=== PATIENT | female | born 1970 | race Caucasian/White ===

== ENCOUNTER 2016-07-13 18:48 | Emergency (ER) | payer OTHER ==
[~2016-07-13] VITALS: Ht 167.6 cm; Wt 108.4 kg
[2016-07-13] MEDS ORDERED: NAPROXEN 250 MG TAB PO ONE (21:45)
[2016-07-13] MEDS ORDERED: NAPR500T PO (22:04)
[2016-07-13 22:17] VITALS: BP 140/85
--- NOTE | 2016-07-14 09:07 | REP ---
RIGHT HUMERUS: 07/13/2016. Clinical history: Trauma. Findings: Two views show no evidence of fracture of the humerus. The AC and glenohumeral joints are intact. Visualized aspects of the elbow were also intact. Impression: 1. No fracture of the humerus. Signed by Raúl Hawkins MD 07/14/2016 02:59 P
== END 2016-07-13 22:21 | disposition home or self-care (01) ==
LOC: M ED 21:04
DX: S40.021A Contusion of right upper arm, initial encounter (principal); W01.10XA Fall on same level from slipping, tripping and stumbling with subsequent striking against unspecified object, initial encounter; Y92.410 Unspecified street and highway as the place of occurrence of the external cause; Y93.89 Activity, other specified; Y99.9 Unspecified external cause status

== ENCOUNTER → 2017-05-02 | Outpatient (CLI) | payer OTHER | LOC: M RAD 10:11 | DX: N91.0 Primary amenorrhea (principal); N88.8 Other specified noninflammatory disorders of cervix uteri; D25.9 Leiomyoma of uterus, unspecified | CPT/HCPCS: 76856 ==

== ENCOUNTER → 2017-09-10 | Outpatient (REF) ==
[2017-09-10 11:54] LABS: RUBELLA IgG QUALITATIVE IMMUNE (IMMUNE)
[2017-09-11 08:07] LABS: RUBEOLA IgG ANTIBODY <25.0 AU/mL (Immune >29.9)
== END ==
LOC: M LAB 10:40
DX: Z00.00 Encounter for general adult medical examination without abnormal findings (principal)

== ENCOUNTER → 2017-10-02 | Outpatient (CLI) | payer OTHER | LOC: M WHC 14:40 | DX: Z12.31 Encounter for screening mammogram for malignant neoplasm of breast (principal); Z85.3 Personal history of malignant neoplasm of breast | CPT/HCPCS: 77067 ==

== ENCOUNTER 2018-01-04 11:16 | Emergency (ER) | payer OTHER ==
[2018-01-04] MEDS: ACETAMINOPHEN 325 MG TAB PO (12:02)
[2018-01-04 12:15] LABS: BASO # 0.1 10^3/uL (0.0-0.2); BASO % 0.6 % (0.0-1.0); EOS # 0.3 10^3/uL (0.0-0.50); HEMATOCRIT 34.5 % (36.0-47.0); HEMOGLOBIN 11.3 g/dl (12.0-15.5); IMMATURE GRANULOCYTE % 0.3 % (0-3.0); LYMPH # 2.5 10^3/uL (1.5-4.5); LYMPH % 28.1 % (24.0-44.0); MEAN CORPUSCULAR HEMOGLOBIN 26.7 pg (27.0-33.0); MEAN CORPUSCULAR HGB CONC 32.8 g/dl (32.0-36.5); MEAN CORPUSCULAR VOLUME 81.4 fl (80.0-96.0); MONO # 0.5 10^3/uL (0.0-0.8); MONO % 5.3 % (0.0-5.0); NEUTROPHILS # 5.6 10^3/uL (1.8-7.7); NEUTROPHILS % 62.7 % (36.0-66.0); PLATELET COUNT, AUTOMATED 310 10^3/uL (150-450); RED BLOOD COUNT 4.24 10^6/uL (4.00-5.40); RED CELL DISTRIBUTION WIDTH 13.4 % (11.5-14.5)
[2018-01-04 12:28] LABS: INR 1.05; PARTIAL THROMBOPLASTIN TIME 25.5 SECONDS (25.4-37.6); PROTHROMBIN TIME 13.8 SECONDS (12.1-14.4)
[2018-01-04 12:38] LABS: ANION GAP 7 MEQ/L (8-16); BLOOD UREA NITROGEN 13 MG/DL (7-18); CALCIUM LEVEL 8.6 MG/DL (8.5-10.1); CARBON DIOXIDE LEVEL 28 MEQ/L (21-32); CHLORIDE LEVEL 106 MEQ/L (98-107); CREATININE FOR GFR 0.74 MG/DL (0.55-1.30); GLOMERULAR FILTRATION RATE > 60.0 (>58); GLUCOSE, FASTING 96 MG/DL (70-100); POTASSIUM SERUM 3.9 MEQ/L (3.5-5.1); SODIUM LEVEL 141 MEQ/L (136-145)
== END 2018-01-04 13:10 | disposition home or self-care (01) ==
LOC: M ED 11:16
DX: I83.812 Varicose veins of left lower extremity with pain (principal)
CPT/HCPCS: 93971

== ENCOUNTER → 2018-07-05 | Outpatient (REF) | payer OTHER ==
[~2018-07-05] MED LIST: NAPR-837 PO
[2018-07-05 13:38] LABS: BLOOD UREA NITROGEN 11 MG/DL (7-18); CALCIUM LEVEL 8.5 MG/DL (8.5-10.1); CARBON DIOXIDE LEVEL 28 MEQ/L (21-32); CHLORIDE LEVEL 104 MEQ/L (98-107); CREATININE FOR GFR 0.71 MG/DL (0.55-1.30); GLOMERULAR FILTRATION RATE > 60.0 (>58); GLUCOSE, FASTING 100 MG/DL (70-100); POTASSIUM SERUM 4.2 MEQ/L (3.5-5.1); SODIUM LEVEL 139 MEQ/L (136-145)
== END ==
LOC: M SFHCPLAZ 11:20
PROVIDERS: ATTEND Family Medicine
DX: G47.62 Sleep related leg cramps (principal)

== ENCOUNTER → 2018-07-16 | Outpatient (CLI) | payer OTHER ==
--- NOTE | 2018-07-16 14:08 | REP ---
Soft tissue ultrasound of the right upper arm. The for a palpable tender mass near the elbow: Ultrasonography of the upper arm above the elbow in the location of the palpable mass posteriorly identifies a solid mass measuring 2.4-0.9 x 0.7 cm. Impression: The palpable mass corresponds to a solid mass as described. I would recommend MRI follow-up for further evaluation. Electronically Signed by Gato Leon MD 07/16/2018 02:00 P
== END ==
LOC: M WHC 11:11
PROVIDERS: ATTEND Family Medicine
DX: R22.31 Localized swelling, mass and lump, right upper limb (principal)

== ENCOUNTER → 2018-07-16 | Outpatient (REF) | payer OTHER | LOC: M SFHCPLAZ 17:15 | PROVIDERS: ATTEND Nurse Practitioner Family | DX: J02.9 Acute pharyngitis, unspecified (principal) ==

== ENCOUNTER → 2018-07-31 | Outpatient (CLI) | payer OTHER ==
[~2018-07-31] MED LIST changes: +PROHANCE 279.3MG/ML 15ML VIAL (A9576) As Ordered ONE; +PROHANCE 279.3MG/ML 5ML VIAL (A9576) As Ordered ONE
--- NOTE | 2018-07-31 16:56 | REP ---
MRI RIGHT HUMERUS WITH AND WITHOUT CONTRAST: Correlation ultrasound 07/16/2018. Multiple sequences were obtained in the axial, coronal planes prior to and following the intravenous administration of 20 mL ProHance. Palpable mass is marked with skin markers and is located posterior and lateral to the distal end of the humerus. At that location there is an oval area of fat which appears to represent a lipoma. This appears to be poorly encapsulated. Approximate maximum length is about 2.8 cm with a width of about 1.3 cm. There is no suspicious enhancement. This follows fat signal on all sequences. I see no other evidence of a soft tissue mass. There is mild subchondral marrow edema in the lateral humeral epicondyle which is nonspecific and may be related to arthritic changes. There is a normal amount of joint fluid. Visualized tendons and ligaments of the elbow appear unremarkable. IMPRESSION: Palpable lump posterolateral to the distal end of the humerus appears to correspond to a poorly encapsulated benign lipoma. No other evidence of soft tissue mass. Electronically Signed by Gato Horne MD 08/02/2018 12:03 P
== END ==
LOC: M RAD 12:32
PROVIDERS: ATTEND Family Medicine
DX: R22.31 Localized swelling, mass and lump, right upper limb (principal)
CPT/HCPCS: 73220; A9576

== ENCOUNTER 2018-10-20 04:56 | Emergency (ER) | payer OTHER ==
[~2018-10-20] VITALS: Ht 167.6 cm; Wt 108.6 kg
[~2018-10-20 04:56] MED LIST changes: -PROHANCE 279.3MG/ML 15ML VIAL (A9576) As Ordered ONE; -PROHANCE 279.3MG/ML 5ML VIAL (A9576) As Ordered ONE
[2018-10-20 07:01] LABS: BASO % 0.3 % (0.0-1.0); EOS # 0.2 10^3/uL (0.0-0.50); EOS % 2.1 % (0.0-3.0); HEMATOCRIT 34.3 % (36.0-47.0); HEMOGLOBIN 11.3 g/dl (12.0-15.5); LYMPH % 16.7 % (24.0-44.0); MEAN CORPUSCULAR HGB CONC 32.9 g/dl (32.0-36.5); MEAN CORPUSCULAR VOLUME 84.9 fl (80.0-96.0); MONO # 0.6 10^3/uL (0.0-0.8); MONO % 5.5 % (0.0-5.0); NEUTROPHILS # 8.8 10^3/uL (1.8-7.7); NEUTROPHILS % 75.1 % (36.0-66.0); PLATELET COUNT, AUTOMATED 270 10^3/uL (150-450); RED BLOOD COUNT 4.04 10^6/uL (4.00-5.40); WHITE BLOOD COUNT 11.7 10^3/uL (4.0-10.0)
[2018-10-20] MEDS ORDERED: PENICILLIN V POTASSIUM 500 MG TAB PO ONE (07:15)
[2018-10-20 07:23] LABS: BLOOD UREA NITROGEN 10 MG/DL (7-18); CARBON DIOXIDE LEVEL 25 MEQ/L (21-32); CHLORIDE LEVEL 109 MEQ/L (98-107); CK-MB VALUE MASS 1.7 NG/ML (<3.6); CPK CREATINE PHOSPHOKINASE 108 U/L (26-192); CREATININE FOR GFR 0.73 MG/DL (0.55-1.30); GLOMERULAR FILTRATION RATE > 60.0 (>58); GLUCOSE, FASTING 110 MG/DL (70-100); MB/CK RELATIVE INDEX 1.57 (< OR =4); POTASSIUM SERUM 4.1 MEQ/L (3.5-5.1); SODIUM LEVEL 142 MEQ/L (136-145); TROPONIN I < 0.02 NG/ML (< 0.10)
[2018-10-20] MEDS ORDERED: ISOVUE-370 76% 100ML VIAL (Q9967) As Ordered ONE (08:07)
[2018-10-20] MEDS ORDERED: PENI500T PO (09:24)
[2018-10-20 09:39] VITALS: BP 118/69
--- NOTE | 2018-10-20 10:57 | REP ---
CT ANGIOGRAM CHEST: TECHNIQUE: Axial contrast enhanced images from the thoracic inlet to the upper abdomen using 100 mL Isovue 370 intravenous contrast material with multiplanar reformations. The study is limited by patient motion. No definite pulmonary embolism is seen. There is no thoracic aortic dissection. There is slight dilatation of the ascending thoracic aorta 4 cm in AP dimension. The heart is slightly enlarged. There is no pleural or pericardial effusion. There is no mediastinal, hilar or chest wall lymphadenopathy. No acute infiltrate is seen in either lung. The patient has had a prior cholecystectomy. There are degenerative changes of the spine. IMPRESSION: Limited exam due to patient motion. No definite pulmonary embolism. Slight dilatation of the ascending thoracic aorta 4 cm in AP dimension with no evidence of aortic dissection. Electronically Signed by Gato Horne MD 10/20/2018 11:37 P
--- NOTE | 2018-10-20 19:35 | ECGEPIP ---
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
--- NOTE | 2018-10-21 06:48 | ED PDOC ---
Post-Departure Follow-Up dr villar faxed formal report of cta chest for fu Pk Zhou MD Oct 21, 2018 06:48
--- NOTE | 2018-10-21 09:48 | REP ---
CHEST, SINGLE VIEW: There is no evidence of acute infiltrate. No pleural effusion is seen. The heart is normal in size. The mediastinal silhouette is unremarkable. The visualized osseous structures are intact. IMPRESSION: No acute pulmonary disease. Electronically Signed by Gato Horne MD 10/22/2018 01:21 P
== END 2018-10-20 09:51 | disposition home or self-care (01) ==
LOC: M ED 04:56
DX: R07.89 Other chest pain (principal); J02.0 Streptococcal pharyngitis; I49.3 Ventricular premature depolarization
CPT/HCPCS: 71045; 71275; 80048; 82550; 82553; 85025; 87880; 93005; 93041; 94760; 99285; Q9967

== ENCOUNTER 2018-10-22 07:49 | Emergency (ER) | payer OTHER ==
[~2018-10-22] VITALS: Ht 167.6 cm; Wt 108.6 kg
[~2018-10-22 07:49] MED LIST changes: +PENI500T PO
[2018-10-22 07:55] VITALS: BP 144/69
--- NOTE | 2018-10-22 10:07 | REP ---
PA and lateral chest: Comparison is the portable chest dated 10/20/2018. There is minor atelectasis above the dome of the left hemidiaphragm as an interval change. Lung mcgrath otherwise clear. Cardiac size is normal. The micaela, mediastinum, skeletal structures are unremarkable. Impression: Minor atelectasis above the dome of the left hemidiaphragm Electronically Signed by Gato Leon MD 10/22/2018 09:59 A
[2018-10-22] MEDS ORDERED: MUCI600T31 PO (10:19)
[2018-10-22] MEDS ORDERED: VENTAER INH (10:19)
[2018-10-22] MEDS ORDERED: BENZ200C70 PO (10:19)
--- NOTE | 2018-10-23 00:15 | ECGEPIP ---
[facility] - ED Test Date: 2018-10-22 Pat Name: IRAIDA ROD Department: Room: - Gender: Female Slurry Control Tender: KURT : 1970 Requested By: JONNIE DAS PA-C. Order Number: [id number] Reading MD: Sea Jarvis Measurements Intervals [place] Rate: 71 P: 22 NE: 169 QRS: QRSD: 89 T: QT: 360 QTc: 393 Interpretive Statements SINUS RHYTHM Nonspecific ST-T wave abnormalities Similar to tracing done 10-20-18 Electronically Signed on 10-23-2018 0:15:05 EDT by Sea Jarvis
== END 2018-10-22 10:41 | disposition home or self-care (01) ==
LOC: EDBD 07:49 → M ED 07:49
DX: J20.9 Acute bronchitis, unspecified (principal); J02.0 Streptococcal pharyngitis; Z79.2 Long term (current) use of antibiotics

== ENCOUNTER → 2018-10-28 | Outpatient (REF) | payer OTHER ==
[~2018-10-28] MED LIST changes: +BENZ200C70 PO; +MUCI600T31 PO; +VENTAER INH
[2018-10-28 17:05] LABS: BASO # 0.1 10^3/uL (0.0-0.2); BASO % 1.1 % (0.0-1.0); EOS # 0.5 10^3/uL (0.0-0.50); EOS % 5.4 % (0.0-3.0); HEMOGLOBIN 11.2 g/dl (12.0-15.5); LYMPH # 2.5 10^3/uL (1.5-4.5); LYMPH % 26.3 % (24.0-44.0); MEAN CORPUSCULAR HEMOGLOBIN 27.9 pg (27.0-33.0); MEAN CORPUSCULAR HGB CONC 32.9 g/dl (32.0-36.5); MEAN CORPUSCULAR VOLUME 84.8 fl (80.0-96.0); MONO # 0.7 10^3/uL (0.0-0.8); MONO % 6.9 % (0.0-5.0); NEUTROPHILS # 5.7 10^3/uL (1.8-7.7); NEUTROPHILS % 59.7 % (36.0-66.0); PLATELET COUNT, AUTOMATED 309 10^3/uL (150-450); RED BLOOD COUNT 4.01 10^6/uL (4.00-5.40); WHITE BLOOD COUNT 9.5 10^3/uL (4.0-10.0)
[2018-10-28 17:13] LABS: PERCENT SATURATION 9.2 % (13.2-45.0)
[2018-10-28 17:20] LABS: FOLATE 16.3 NG/ML
== END ==
LOC: M SFHCPLAZ 14:57
PROVIDERS: ATTEND Family Medicine
DX: B97.89 Other viral agents as the cause of diseases classified elsewhere (principal); D64.9 Anemia, unspecified

== ENCOUNTER → 2019-10-15 | Outpatient (CLI) | payer OTHER ==
[~2019-10-15] MED LIST changes: +ONDA4TAB6 PO
--- NOTE | 2019-10-15 16:26 | REP ---
REASON: Atraumatic knee pain. No priors. There is tricompartmental marginal osteophytosis. There is mild asymmetric patellofemoral joint space narrowing. There is no acute fracture, dislocation, or subluxation. IMPRESSION: Chronic changes as described above. Electronically Signed by Kofi Mina DO 10/15/2019 04:46 P
== END ==
LOC: M WUC 13:23
PROVIDERS: ATTEND Nurse Practitioner Family
DX: M25.761 Osteophyte, right knee (principal)

== ENCOUNTER 2020-08-24 12:37 | Inpatient (IN) | payer OTHER, SELFPAY ==
[~2020-08-24] VITALS: Ht 167.6 cm; Wt 104.5 kg
[2020-08-24] MEDS ORDERED: ACETAMINOPHEN TAB 650MG DOSE (2X325MG) PO ONE (13:15)
[2020-08-24] MEDS ORDERED: ONDANSETRON 4MG/2ML VIAL IV ONE (13:15)
[2020-08-24 13:26] LABS: BASO % 0.2 % (0.0-1.0); HEMATOCRIT 39.6 % (36.0-47.0); HEMOGLOBIN 13.3 g/dl (12.0-15.5); LYMPH # 0.9 10^3/uL (1.5-5.0); MEAN CORPUSCULAR HEMOGLOBIN 28.5 pg (27.0-33.0); MEAN CORPUSCULAR HGB CONC 33.6 g/dl (32.0-36.5); MONO # 0.5 10^3/uL (0.0-0.8); MONO % 5.5 % (2.0-8.0); NEUTROPHILS # 7.4 10^3/uL (1.5-8.5); NEUTROPHILS % 83.4 % (36.0-66.0); PLATELET COUNT, AUTOMATED 204 10^3/uL (150-450); RED BLOOD COUNT 4.66 10^6/uL (4.00-5.40); WHITE BLOOD COUNT 8.8 10^3/uL (4.0-10.0)
[2020-08-24] MEDS ORDERED: VENTAER INH (13:35)
[2020-08-24] MEDS ORDERED: ONDA4TAB6 PO (13:35)
--- NOTE | 2020-08-24 13:35 | REP ---
INDICATION: Coronavirus workup COMPARISON: 02/11/2019 TECHNIQUE: Portable AP view of the chest FINDINGS: Diffuse bilateral airspace disease (left greater than right) consistent with multifocal pneumonia. Correlation and follow-up is required. IMPRESSION: Findings consistent with multifocal pneumonia. Correlation and follow-up required. <Electronically signed by See Johnson > 08/24/20 [id number]
[2020-08-24 13:54] LABS: ALBUMIN 2.9 GM/DL (3.2-5.2); ALT/SGPT 20 U/L (12-78); BLOOD UREA NITROGEN 10 MG/DL (7-18); CALCIUM LEVEL 8.6 MG/DL (8.5-10.1); CARBON DIOXIDE LEVEL 33 MEQ/L (21-32); CHLORIDE LEVEL 97 MEQ/L (98-107); CREATININE FOR GFR 0.81 MG/DL (0.55-1.30); GLOMERULAR FILTRATION RATE > 60.0 (>51); GLUCOSE, FASTING 151 MG/DL (70-100); POTASSIUM SERUM 3.1 MEQ/L (3.5-5.1); SODIUM LEVEL 138 MEQ/L (136-145); TOTAL PROTEIN 7.1 GM/DL (6.4-8.2)
[2020-08-24 13:54] LABS: CK-MB VALUE MASS < 1.0 NG/ML (<3.6); CPK CREATINE PHOSPHOKINASE 70 U/L (26-192); FERRITIN 140 NG/ML (8-252); LDH LACTATE DEHYDROGENASE 342 U/L (84-246); MB/CK RELATIVE INDEX 1.43 (< OR =4); TROPONIN I < 0.02 NG/ML (< 0.10)
[2020-08-24] MEDS ORDERED: ONDANSETRON 4MG/2ML VIAL IV PRN (15:10)
[2020-08-24] MEDS ORDERED: ACETAMINOPHEN TAB 650MG DOSE (2X325MG) PO PRN (15:10)
[2020-08-24] MEDS ORDERED: SODIUM CHLORIDE 0.9% 1000ML IV ONE (16:35)
--- NOTE | 2020-08-24 17:05 | HPEPDOC ---
General Date of Admission 08/24/20 Date of Service: August 24, 2020 Chief Complaint The patient is a 50-year-old female admitted with a reason for visit of Nausea/Vomiting. Source: Patient, RN/MD History of Present Illness 50 year old female with PMH of asthma has been sick for the past 7 days with fever, chills, malaise, bodyches, loss of taste, nausea, vomiting and intermitt ent diarrhea, Cough and SOB. She reports that she has lost 10 lbs of weight in this time. She has been unable to take any solids but had been able to keep liquids down till today when she woke up with a fever and had nausea and vomiting and could not even keep her liquids down. She has been using her albuterol 5 to 6 times a day as she was feeling SOB and easily winded. She was diagnosed with COVID on 08/19/20 and her symptoms began 2 days prior. EMS noted her to be 82% in room air. In the ED on arrival she was 77% in room air with SpO2 improving to 94% wit 3 L oxygen. CXR showed diffuse patchy infiltrates. She was admitted for COVID pneumonia and acute respiratory failure with Hypoxia. 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; Surgical History LEFT SHOULDER REPAIR AFTER DISLOCATION 1990 CHOLECYSTECTOMY - [facility] 2010 Family History FATHER: ALIVE, DM2, SKIN CANCER MOTHER: ALIVE, DM2, HTN, DEPRESSION, BREAST CANCER AT AGE 55 SIBLINGS: BROTHER GOT A PACEMAKER AT AGE 33 FOR "IRREGULAR HEART BEAT" SON(S): SON HAS MUSCULAR DYSTROPHY; 1 DAUGHTER HAS A LEARNING DISABILITY Social History * Smoker: non-smoker Alcohol: rarely Drugs: denies A-FIB/CHADSVASC A-FIB History Current/History of A-Fib/PAF?: No Review of Systems Constitutional: Reports: Chills, Fever, Malaise, Weakness, Fatigue, Weight Loss Eyes: Denies: Pain, Vision change ENT: Reports: Head Aches Skin: Denies: Rash, Lesions, Breakdown Pulmonary: Reports: Dyspnea, Cough Cardiovascular: Reports: Palpitations; Denies: Chest Pain, Orthopnea, Paroxysmal Noc. Dyspnea, Lt Headedness Gastrointestinal: Reports: Nausea, Vomiting, Diarrhea Genitourinary: Denies: Dysuria, Frequency, Incontinence, Retention Hematologic: Denies: Bruising, Bleeding Excessively Physical Examination General Exam: Positive: Alert, Cooperative, No Acute Distress Eye Exam: Positive: PERRLA, Conjunctiva & lids normal, EOMI; Negative: Sclera icteric ENT Exam: Positive: Atraumatic, Mucous membr. moist/pink, Pharynx Normal Neck Exam: Positive: Supple; Negative: JVD, thyromegaly Chest Exam: Positive: Other (bilateral diffuse crackles) Heart Exam: Positive: Rate Normal, Regular Rhythm, Normal S1, Normal S2; Negative: Murmurs, Rubs Telemetry: Positive: No significant arrhythmia Abdomen Exam: Positive: Normal bowel sounds, Soft; Negative: Tenderness, Hepatospenomegaly Extremity Exam: Negative: Clubbing, Cyanosis, Edema Vital Signs Vital Signs Date Time Temp Pulse Resp B/P (MAP) Pulse Ox O2 Delivery O2 Flow Rate FiO2 08/24/20 12:57 101.4 92 22 119/65 (83) 77 Room Air Laboratory Data Labs 24H Laboratory Tests 2 08/24/20 12:49: Immature Granulocyte % (Auto) 0.9, Neutrophils (%) (Auto) 83.4H, Lymphocytes (%) (Auto) 10.0L, Monocytes (%) (Auto) 5.5, Eosinophils (%) (Auto) 0.0, Basophils (%) (Auto) 0.2, Neutrophils # (Auto) 7.4, Lymphocytes # (Auto) 0.9L, Monocytes # (Auto) 0.5, Eosinophils # (Auto) 0.0, Basophils # (Auto) 0.0, Nucleated Red Blood Cells % (auto) 0.0, Anion Gap 8, Glomerular Filtration Rate > 60.0, Calcium Level 8.6, Total Bilirubin 1.0, Aspartate Amino Transf (AST/SGOT) 30, Alanine Aminotransferase (ALT/SGPT) 20, Alkaline Phosphatase 80, Total Protein 7.1, Albumin 2.9L, Albumin/Globulin Ratio 0.7L 08/24/20 12:53: D-Dimer, Quantitative 721.62H, Lactic Acid Level 2.2*H, Ferritin 140, Lactate Dehydrogenase 342H, Total Creatine Kinase 70, Creatine Kinase MB < 1.0, Creatine Kinase MB Relative Index 1.43, Troponin I < 0.02, C-Reactive Protein, Quantitative 16.50H 08/24/20 13:19: POC pH (Misc Panel) 7.545H, POC Base Excess (Misc Panel) 12.0H, POC Saturated Percent O2 (Misc) 91L, POC pO2 (Misc Panel) 54.0L, POC pCO2 (Misc Panel) 39.6, POC HCO3 (Misc Panel) 34.2H, POC Total CO2 (Misc Panel) 35.0H CBC/BMP Laboratory Tests 08/24/20 12:49 Assessment/Plan 50 year old female with PMH of asthma has been sick for the past 7 days with all the symptoms of a viral illness .She was diagnosed with COVID on 08/19/20 and her symptoms began 2 days prior. She has been unable to take any solids but had been able to keep liquids down till today when she woke up with a fever and had nausea and vomiting and could not even keep her liquids down. EMS noted her to be 82% in room air. In the ED on arrival she was 77% in room air with SpO2 improving to 94% wit 3 L oxygen adn febrile. CXR showed diffuse patchy infi ltrates. She was admitted for COVID pneumonia and acute respiratory failure with Hypoxia. COVID pneumonia with acute resp failure with hypoxia dexamethasone, remdesevir, asa, lovenox bid, pantoprazole bid. incentive spirometry, awake proning, lateral decubitus most of the time in bed. Oxygen supplementation, continuous pulse oximetry. albuterol QID. COVID labs and procalcitonin. Plan / VTE VTE Prophylaxis Ordered?: Yes RENUKA CHANDRA MD August 24, 2020 14:46
[2020-08-24 17:10] VITALS: BP 108/69
[2020-08-24] MEDS ORDERED: SODIUM CHLORIDE 0.9% INJ 10 ML SYR IV ONE (17:10)
[2020-08-24] MEDS ORDERED: POTASSIUM CHLORIDE 10 MEQ SR TABLET PO ONE (17:45)
[2020-08-24] MEDS ORDERED: REMDESIVIR 200 MG in NS 250 ML IV ONE (19:00)
[2020-08-24] MEDS: ENOXAPARIN 100MG/1ML SYRINGE (J1650 PER 10MG) SC SCH (19:37)
[2020-08-24] MEDS: PANTOPRAZOLE 40MG TAB (PROTONIX) PO SCH (19:38)
[2020-08-24 20:00] VITALS: BP 128/68
[2020-08-24] MEDS: ALBUTEROL 90 MCG/ACT 8GM HFA INHALER INH SCH ×2 (20:34→23:53)
[2020-08-24] MEDS ORDERED: BENZONATATE 100 MG CAP PO PRN (21:20)
--- NOTE | 2020-08-24 21:36 | ECGEPIP ---
[facility] - ED Test Date: 2020-08-24 Pat Name: IRAIDA ROD Department: Room: - Gender: Female Lining Feller Blindstitch: MAYA : 1970 Requested By: Jet Oakley Order Number: [id number] Reading MD: Nae Harkins Measurements Intervals [place] Rate: 92 P: 24 [place]: 152 QRS: -3 QRSD: 86 T: 9 QT: 342 QTc: 422 Interpretive Statements Normal sinus rhythm Minimal voltage criteria for LVH, may be normal variant ( R in aVL ) NSTTW abnormalities increased rate 10/22/18 Electronically Signed on 08-24-2020 21:35:58 EDT by Nae Harkins
[2020-08-25 06:00] VITALS: BP 105/59
[2020-08-25 07:22] LABS: BASO % 0.3 % (0.0-1.0); HEMATOCRIT 34.4 % (36.0-47.0); HEMOGLOBIN 11.4 g/dl (12.0-15.5); LYMPH # 1.4 10^3/uL (1.5-5.0); MEAN CORPUSCULAR HEMOGLOBIN 28.7 pg (27.0-33.0); MEAN CORPUSCULAR HGB CONC 33.1 g/dl (32.0-36.5); MEAN CORPUSCULAR VOLUME 86.6 fl (80.0-96.0); MONO # 0.5 10^3/uL (0.0-0.8); MONO % 6.4 % (2.0-8.0); NEUTROPHILS # 5.8 10^3/uL (1.5-8.5); NEUTROPHILS % 74.4 % (36.0-66.0); PLATELET COUNT, AUTOMATED 187 10^3/uL (150-450); RED BLOOD COUNT 3.97 10^6/uL (4.00-5.40); WHITE BLOOD COUNT 7.8 10^3/uL (4.0-10.0)
[2020-08-25 07:48] LABS: BLOOD UREA NITROGEN 8 MG/DL (7-18); CALCIUM LEVEL 8.2 MG/DL (8.5-10.1); CARBON DIOXIDE LEVEL 33 MEQ/L (21-32); CHLORIDE LEVEL 101 MEQ/L (98-107); CREATININE FOR GFR 0.67 MG/DL (0.55-1.30); GLOMERULAR FILTRATION RATE > 60.0 (>51); GLUCOSE, FASTING 145 MG/DL (70-100); POTASSIUM SERUM 2.8 MEQ/L (3.5-5.1); SODIUM LEVEL 137 MEQ/L (136-145)
[2020-08-25] MEDS: ALBUTEROL 90 MCG/ACT 8GM HFA INHALER INH SCH ×2 (07:51→20:32)
[2020-08-25] MEDS: dexameTHASONE 4 MG/ML 1ML VIAL (J1100 PER 1MG) IV SCH (08:37)
[2020-08-25] MEDS: ASPIRIN 81MG ENTERIC TABLET PO SCH (08:38)
[2020-08-25] MEDS: ENOXAPARIN 100MG/1ML SYRINGE (J1650 PER 10MG) SC SCH (08:38)
[2020-08-25] MEDS: PANTOPRAZOLE 40MG TAB (PROTONIX) PO SCH ×2 (08:38→20:04)
[2020-08-25] MEDS: POTASSIUM CHLORIDE 10 MEQ SR TABLET PO SCH ×2 (08:39→20:04)
[2020-08-25] MEDS: KCL 10MEQ/100ML SWI (KRUN) 10 MEQ in IV 1 EA IV SCH ×2 (08:39→10:00)
[2020-08-25] MEDS ORDERED: POTASSIUM CHLORIDE 10 MEQ SR TABLET PO ONE (12:00)
--- NOTE | 2020-08-25 12:04 | IPNPDOC ---
Subjective Date Seen The patient was seen on 08/25/20. Subjective Chief Complaint/HPI Increased oxygen requirement overnight now at 8L / min. Denies any SOB at rest. Has some cough with mucoid phlegm production. Objective Physical Examination General Exam: Positive: Alert, Cooperative, No Acute Distress Eye Exam: Positive: PERRLA, Conjunctiva & lids normal, EOMI; Negative: Sclera icteric ENT Exam: Positive: Atraumatic, Mucous membr. moist/pink, Pharynx Normal Neck Exam: Positive: Supple; Negative: JVD, thyromegaly Chest Exam: Positive: Other (bilateral diffuse crackles) Heart Exam: Positive: Rate Normal, Regular Rhythm, Normal S1, Normal S2; Negative: Murmurs, Rubs Telemetry: Positive: No significant arrhythmia Abdomen Exam: Positive: Normal bowel sounds, Soft; Negative: Tenderness, Hepatospenomegaly Extremity Exam: Negative: Clubbing, Cyanosis, Edema Assessment /Plan Assessment 50 year old female with PMH of asthma has been sick for the past 7 days with all the symptoms of a viral illness .She was diagnosed with COVID on 08/19/20 and her symptoms began 2 days prior. She has been unable to take any solids but had been able to keep liquids down till today when she woke up with a fever and had nausea and vomiting and could not even keep her liquids down. EMS noted her to be 82% in room air. In the ED on arrival she was 77% in room air with SpO2 improving to 94% wit 3 L oxygen adn febrile. CXR showed diffuse patchy infiltrates. She was admitted for COVID pneumonia and acute respiratory failure with Hypoxia. COVID pneumonia with acute resp failure with hypoxia dexamethasone, remdesevir, asa, lovenox bid, pantoprazole bid. incentive spirometry, awake proning, lateral decubitus most of the time when in bed. Oxygen supplementation, continuous pulse oximetry. albuterol QID. COVID labs and procalcitonin is normal. crying in screaming after lovenox injections and nurses had been putting ice pack on the site. Will reduce dose of lovenox to daily. Hypokalemia getting replaced Could not tolerate IV potassium Plan/VTE VTE Prophylaxis Ordered?: Yes VS, I&O, 24H, Fishbone Vital Signs/I&O Vital Signs Date Time Temp Pulse Resp B/P (MAP) Pulse Ox O2 Delivery O2 Flow Rate FiO2 08/25/20 06:00 99.8 81 18 105/59 (74) 93 High Flow Cannula 8.0 I&O- Last 24 Hours up to 6 AM 08/25/20 06:00 Intake Total 770 ml Balance 770 ml Laboratory Data 24H LABS Laboratory Tests 2 08/24/20 12:49: Immature Granulocyte % (Auto) 0.9, Neutrophils (%) (Auto) 83.4H, Lymphocytes (%) (Auto) 10.0L, Monocytes (%) (Auto) 5.5, Eosinophils (%) (Auto) 0.0, Basophils (%) (Auto) 0.2, Neutrophils # (Auto) 7.4, Lymphocytes # (Auto) 0.9L, Monocytes # (Auto) 0.5, Eosinophils # (Auto) 0.0, Basophils # (Auto) 0.0, Nucleated Red Blood Cells % (auto) 0.0, Anion Gap 8, Glomerular Filtration Rate > 60.0, Calcium Level 8.6, Total Bilirubin 1.0, Aspartate Amino Transf (AST/SGOT) 30, Alanine Aminotransferase (ALT/SGPT) 20, Alkaline Phosphatase 80, Total Protein 7.1, Albumin 2.9L, Albumin/Globulin Ratio 0.7L 08/24/20 12:53: D-Dimer, Quantitative 721.62H, Lactic Acid Level 2.2*H, Ferritin 140, Lactate Dehydrogenase 342H, Total Creatine Kinase 70, Creatine Kinase MB < 1.0, Creatine Kinase MB Relative Index 1.43, Troponin I < 0.02, C-Reactive Protein, Quantit ative 16.50H 08/24/20 12:56: 08/24/20 13:19: POC pH (Misc Panel) 7.545H, POC Base Excess (Misc Panel) 12.0H, POC Saturated Percent O2 (Misc) 91L, POC pO2 (Misc Panel) 54.0L, POC pCO2 (Misc Panel) 39.6, POC HCO3 (Misc Panel) 34.2H, POC Total CO2 (Misc Panel) 35.0H 08/24/20 17:57: Lactic Acid Followup at 4 Hours 1.4 08/25/20 07:04: Immature Granulocyte % (Auto) 0.9, Neutrophils (%) (Auto) 74.4H, Lymphocytes (%) (Auto) 18.0L, Monocytes (%) (Auto) 6.4, Eosinophils (%) (Auto) 0.0, Basophils (%) (Auto) 0.3, Neutrophils # (Auto) 5.8, Lymphocytes # (Auto) 1.4L, Monocytes # (Auto) 0.5, Eosinophils # (Auto) 0.0, Basophils # (Auto) 0.0, Nucleated Red Blood Cells % (auto) 0.0, Anion Gap 3L, Glomerular Filtration Rate > 60.0, Calcium Level 8.2L, Magnesium Level 2.0 CBC/BMP Laboratory Tests 08/24/20 12:49 08/25/20 07:04 RENUKA CHANDRA MD August 25, 2020 08:15
[2020-08-25] MEDS: REMDESIVIR 100 MG in NS 250 ML IV SCH (18:09)
[2020-08-25] MEDS: SODIUM CHLORIDE 0.9% INJ 10 ML SYR IV SCH (18:10)
[2020-08-25 18:39] VITALS: BP 125/73
[2020-08-25 20:00] VITALS: BP 125/74
[2020-08-26 06:00] VITALS: BP 134/86
[2020-08-26] MEDS: ALBUTEROL 90 MCG/ACT 8GM HFA INHALER INH SCH ×3 (06:21→19:54)
[2020-08-26 08:00] VITALS: O2SAT 92
[2020-08-26] MEDS: ASPIRIN 81MG ENTERIC TABLET PO SCH (08:20)
[2020-08-26] MEDS: PANTOPRAZOLE 40MG TAB (PROTONIX) PO SCH ×2 (08:20→20:13)
[2020-08-26] MEDS: POTASSIUM CHLORIDE 10 MEQ SR TABLET PO SCH ×2 (08:20→20:13)
[2020-08-26] MEDS: dexameTHASONE 4 MG/ML 1ML VIAL (J1100 PER 1MG) IV SCH (08:21)
[2020-08-26] MEDS: ENOXAPARIN 40MG/0.4ML SYRINGE (J1650 PER 10MG) SC SCH (08:21)
[2020-08-26 08:41] LABS: HEMATOCRIT 36.7 % (36.0-47.0); MEAN CORPUSCULAR HEMOGLOBIN 28.4 pg (27.0-33.0); MEAN CORPUSCULAR HGB CONC 32.7 g/dl (32.0-36.5); MEAN CORPUSCULAR VOLUME 86.8 fl (80.0-96.0); PLATELET COUNT, AUTOMATED 222 10^3/uL (150-450); RED BLOOD COUNT 4.23 10^6/uL (4.00-5.40); WHITE BLOOD COUNT 6.4 10^3/uL (4.0-10.0)
[2020-08-26 08:52] LABS: INR 1.13; PROTHROMBIN TIME 14.8 SECONDS (12.5-14.3)
[2020-08-26 08:53] LABS: PARTIAL THROMBOPLASTIN TIME 29.6 SECONDS (24.2-38.5)
[2020-08-26 09:08] LABS: ATYPICAL LYMPH 3 % (0-5); EOSINOPHILS 1 % (0-3); LYMPHOCYTES 15 % (16-44); MONOCYTES 8 % (0-5); NEUTROPHILS 73 % (28-66); PLATELET ESTIMATE NORMAL (NORMAL)
[2020-08-26 09:15] LABS: ALBUMIN 2.3 GM/DL (3.2-5.2); ALT/SGPT 16 U/L (12-78); BILIRUBIN,DIRECT < 0.1 MG/DL (0.0-0.2); BILIRUBIN,TOTAL 0.4 MG/DL (0.2-1.0); BLOOD UREA NITROGEN 12 MG/DL (7-18); CALCIUM LEVEL 8.4 MG/DL (8.5-10.1); CARBON DIOXIDE LEVEL 32 MEQ/L (21-32); CHLORIDE LEVEL 107 MEQ/L (98-107); CPK CREATINE PHOSPHOKINASE 55 U/L (26-192); CREATININE FOR GFR 0.58 MG/DL (0.55-1.30); FERRITIN 182 NG/ML (8-252); GLOMERULAR FILTRATION RATE > 60.0 (>51); GLUCOSE, FASTING 139 MG/DL (70-100); LDH LACTATE DEHYDROGENASE 302 U/L (84-246); MAGNESIUM LEVEL 2.4 MG/DL (1.8-2.4); NT-PRO BNP 223 PG/ML (<125); POTASSIUM SERUM 3.8 MEQ/L (3.5-5.1); SODIUM LEVEL 143 MEQ/L (136-145); TOTAL PROTEIN 7.2 GM/DL (6.4-8.2); TROPONIN I < 0.02 NG/ML (< 0.10)
--- NOTE | 2020-08-26 12:49 | IPNPDOC ---
Subjective Date Seen The patient was seen on 08/26/20. Subjective Chief Complaint/HPI No fevers overnight. Has some cough with mucoid phlegm production. Reports that she is able to do the incentive spirometer better today. Oxygen requirement is down to 5 liters. Objective Physical Examination General Exam: Positive: Alert, Cooperative, No Acute Distress Eye Exam: Positive: PERRLA, Conjunctiva & lids normal, EOMI; Negative: Sclera icteric ENT Exam: Positive: Atraumatic, Mucous membr. moist/pink, Pharynx Normal Neck Exam: Positive: Supple; Negative: JVD, thyromegaly Chest Exam: Positive: Other (bilateral diffuse crackles) Heart Exam: Positive: Rate Normal, Regular Rhythm, Normal S1, Normal S2; Negative: Murmurs, Rubs Telemetry: Positive: No significant arrhythmia Abdomen Exam: Positive: Normal bowel sounds, Soft; Negative: Tenderness, Hepatospenomegaly Extremity Exam: Negative: Clubbing, Cyanosis, Edema Assessment /Plan Assessment 50 year old female with PMH of asthma has been sick for the past 7 days with all the symptoms of a viral illness .She was diagnosed with COVID on 08/19/20 and her symptoms began 2 days prior. She has been unable to take any solids but had been able to keep liquids down till today when she woke up with a fever and had judith sea and vomiting and could not even keep her liquids down. EMS noted her to be 82% in room air. In the ED on arrival she was 77% in room air with SpO2 improving to 94% wit 3 L oxygen adn febrile. CXR showed diffuse patchy infiltrates. She was admitted for COVID pneumonia and acute respiratory failure with Hypoxia. COVID pneumonia with acute resp failure with hypoxia dexamethasone, remdesevir, asa, lovenox, pantoprazole bid. incentive spirometry, awake proning, lateral decubitus most of the time when in bed. Oxygen supplementation, continuous pulse oximetry. albuterol QID. COVID labs and procalcitonin is normal. crying in screaming after lovenox injections and nurses had been putting ice pack on the site. Will reduce dose of lovenox to daily. Hypokalemia replaced Could not tolerate IV potassium Asthma does not seem to be in exacerbation at present continue home meds, albuterol On dexamthasone. Plan/VTE VTE Prophylaxis Ordered?: Yes VS, I&O, 24H, Eduardboncr Vital Signs/I&O Vital Signs Date Time Temp Pulse Resp B/P (MAP) Pulse Ox O2 Delivery O2 Flow Rate FiO2 08/26/20 08:30 8.0 08/26/20 08:00 92 Nasal Cannula 08/26/20 06:00 96.9 72 18 134/86 (102) I&O- Last 24 Hours up to 6 AM 08/26/20 06:00 Intake Total 1350 ml Balance 1350 ml Laboratory Data 24H LABS Laboratory Tests 2 08/25/20 11:38: Lab Scanned Report Miscellaneous Lab 08/26/20 08:27: Neutrophils (%) (Auto) , Nucleated Red Blood Cells % (auto) 0.0, Neutrophils 73H, Lymphocytes (Manual) 15L, Monocytes (Manual) 8H, Eosinophils (Manual) 1, Atypical Lymphocytes 3, Platelet Estimate NORMAL, Prothrombin Time 14.8H, Prothromb Time International Ratio 1.13, Activated Partial Thromboplast Time 29.6, Fibrinogen 632H, Anion Gap 4L, Glomerular Filtration Rate > 60.0, Calcium Level 8.4L, Magnesium Level 2.4, Ferritin 182, Total Bilirubin 0.4#, Direct Bilirubin < 0.1, Aspartate Amino Transf (AST/SGOT) 16, Alanine Aminotransferase (ALT/SGPT) 16, Alkaline Phosphatase 68, Lactate Dehydrogenase 302H, Total Creatine Kinase 55, Troponin I < 0.02, WW-Quu-I-Type Natriuretic Peptide 223H, Total Protein 7.2, Albumin 2.3#L, Albumin/Globulin Ratio 0.5L, Procalcitonin <0.05 CBC/BMP Laboratory Tests 08/25/20 14:50 08/26/20 08:27 RENUKA CHANDRA MD August 26, 2020 11:08
[2020-08-26 13:55] VITALS: BP 116/62
[2020-08-26] MEDS: SODIUM CHLORIDE 0.9% INJ 10 ML SYR IV SCH (18:47)
[2020-08-26] MEDS: REMDESIVIR 100 MG in NS 250 ML IV SCH (18:48)
[2020-08-26 20:00] VITALS: O2SAT 91
[2020-08-26 20:11] VITALS: BP 142/67
[2020-08-27] MEDS: ALBUTEROL 90 MCG/ACT 8GM HFA INHALER INH SCH ×4 (02:16→20:33)
[2020-08-27 06:08] VITALS: BP 128/75
[2020-08-27 08:00] VITALS: O2SAT 95
[2020-08-27 08:27] LABS: BASO # 0.1 10^3/uL (0.0-0.2); BASO % 0.6 % (0.0-1.0); EOS % 0.3 % (0.0-3.0); HEMATOCRIT 38.3 % (36.0-47.0); HEMOGLOBIN 12.4 g/dl (12.0-15.5); LYMPH # 2.4 10^3/uL (1.5-5.0); LYMPH % 19.3 % (24.0-44.0); MEAN CORPUSCULAR HEMOGLOBIN 28.3 pg (27.0-33.0); MEAN CORPUSCULAR HGB CONC 32.4 g/dl (32.0-36.5); MEAN CORPUSCULAR VOLUME 87.4 fl (80.0-96.0); MONO # 0.6 10^3/uL (0.0-0.8); MONO % 5.1 % (2.0-8.0); NEUTROPHILS # 8.8 10^3/uL (1.5-8.5); NEUTROPHILS % 72.1 % (36.0-66.0); PLATELET COUNT, AUTOMATED 293 10^3/uL (150-450); RED BLOOD COUNT 4.38 10^6/uL (4.00-5.40); WHITE BLOOD COUNT 12.2 10^3/uL (4.0-10.0)
[2020-08-27 08:48] LABS: BLOOD UREA NITROGEN 13 MG/DL (7-18); CALCIUM LEVEL 8.3 MG/DL (8.5-10.1); CARBON DIOXIDE LEVEL 29 MEQ/L (21-32); CHLORIDE LEVEL 108 MEQ/L (98-107); CREATININE FOR GFR 0.71 MG/DL (0.55-1.30); GLOMERULAR FILTRATION RATE > 60.0 (>51); GLUCOSE, FASTING 111 MG/DL (70-100); MAGNESIUM LEVEL 2.1 MG/DL (1.8-2.4); POTASSIUM SERUM 3.9 MEQ/L (3.5-5.1); SODIUM LEVEL 143 MEQ/L (136-145)
[2020-08-27] MEDS: dexameTHASONE 4 MG/ML 1ML VIAL (J1100 PER 1MG) IV SCH (09:16)
[2020-08-27] MEDS: PANTOPRAZOLE 40MG TAB (PROTONIX) PO SCH ×2 (09:16→21:17)
[2020-08-27] MEDS: ASPIRIN 81MG ENTERIC TABLET PO SCH (09:16)
[2020-08-27] MEDS: POTASSIUM CHLORIDE 10 MEQ SR TABLET PO SCH ×2 (09:16→21:17)
[2020-08-27] MEDS: ENOXAPARIN 40MG/0.4ML SYRINGE (J1650 PER 10MG) SC SCH (09:16)
--- NOTE | 2020-08-27 10:48 | IPNPDOC ---
Subjective Date Seen The patient was seen on 08/27/20. Subjective Chief Complaint/HPI Has been on 5 L oxygen since yesterday morning. Denies any SOB at rest thought still getting winded on mild exertion with saturations dropping to 84%. Will try to wean oxygen as tolerated. No abdominal pain or nausea or vomiting. Objective Physical Examination General Exam: Positive: Alert, Cooperative, No Acute Distress Eye Exam: Positive: PERRLA, Conjunctiva & lids normal, EOMI; Negative: Sclera icteric ENT Exam: Positive: Atraumatic, Mucous membr. moist/pink, Pharynx Normal Neck Exam: Positive: Supple; Negative: JVD, thyromegaly Chest Exam: Positive: Other (bilateral diffuse crackles) Heart Exam: Positive: Rate Normal, Regular Rhythm, Normal S1, Normal S2; Negative: Murmurs, Rubs Telemetry: Positive: No significant arrhythmia Abdomen Exam: Positive: Normal bowel sounds, Soft; Negative: Tenderness Extremity Exam: Negative: Clubbing, Cyanosis, Edema Assessment /Plan Assessment 50 year old female with PMH of asthma has been sick for the past 7 days with all the symptoms of a viral illness .She was diagnosed with COVID on 08/19/20 and her symptoms began 2 days prior. She has been unable to take any solids but had been able to keep liquids down till today when she woke up with a fever and had nausea and vomiting and could not even keep her liquids down. EMS noted her to be 82% in room air. In the ED on arrival she was 77% in room air with SpO2 improving to 94% wit 3 L oxygen adn febrile. CXR showed diffuse patchy infiltrates. She was admitted for COVID pneumonia and acute respiratory failure with Hypoxia. COVID pneumonia with acute resp failure with hypoxia dexamethasone, remdesevir, asa, lovenox, pantoprazole bid. incentive spirometry, awake proning, lateral decubitus most of the time when in bed. Oxygen supplementation, continuous pulse oximetry. albuterol QID. COVID labs procalcitonin is normal. Hypokalemia replaced Could not tolerate IV potassium Asthma does not seem to be in exacerbation at present continue home meds, albuterol On dexamthasone. Plan/VTE VTE Prophylaxis Ordered?: Yes VS, I&O, 24H, Fishbone Vital Signs/I&O Vital Signs Date Time Temp Pulse Resp B/P (MAP) Pulse Ox O2 Delivery O2 Flow Rate FiO2 08/27/20 06:08 96.9 78 20 128/75 (92) 91 Nasal Cannula 5.0 I&O- Last 24 Hours up to 6 AM 08/27/20 06:00 Intake Total 1080 ml Balance 1080 ml Laboratory Data 24H LABS Laboratory Tests 2 08/27/20 08:16: Immature Granulocyte % (Auto) 2.6, Neutrophils (%) (Auto) 72.1H, Lymphocytes (%) (Auto) 19.3L, Monocytes (%) (Auto) 5.1, Eosinophils (%) (Auto) 0.3, Basophils (%) (Auto) 0.6, Neutrophils # (Auto) 8.8H, Lymphocytes # (Auto) 2.4, Monocytes # (Auto) 0.6, Eosinophils # (Auto) 0.0, Basophils # (Auto) 0.1, Nucleated Red Blood Cells % (auto) 0.0 CBC/BMP Laboratory Tests 08/27/20 08:16 RENUKA CHANDRA MD August 27, 2020 08:50
[2020-08-27 14:11] VITALS: BP 117/71
[2020-08-27] MEDS: SODIUM CHLORIDE 0.9% INJ 10 ML SYR IV SCH (18:29)
[2020-08-27] MEDS: REMDESIVIR 100 MG in NS 250 ML IV SCH (18:29)
[2020-08-27 19:43] VITALS: BP 110/86
[2020-08-27 22:13] VITALS: O2SAT 94
[2020-08-28] MEDS: ALBUTEROL 90 MCG/ACT 8GM HFA INHALER INH SCH ×4 (01:16→20:20)
[2020-08-28 05:05] VITALS: BP 154/96
[2020-08-28 07:27] LABS: HEMATOCRIT 35.8 % (36.0-47.0); HEMOGLOBIN 11.9 g/dl (12.0-15.5); MEAN CORPUSCULAR HEMOGLOBIN 28.3 pg (27.0-33.0); MEAN CORPUSCULAR HGB CONC 33.2 g/dl (32.0-36.5); PLATELET COUNT, AUTOMATED 277 10^3/uL (150-450); RED BLOOD COUNT 4.21 10^6/uL (4.00-5.40); WHITE BLOOD COUNT 9.2 10^3/uL (4.0-10.0)
[2020-08-28 07:43] LABS: INR 1.12; PROTHROMBIN TIME 14.6 SECONDS (12.5-14.3)
[2020-08-28 07:44] LABS: PARTIAL THROMBOPLASTIN TIME 27.3 SECONDS (24.2-38.5)
[2020-08-28 07:56] LABS: ALBUMIN 2.3 GM/DL (3.2-5.2); ALT/SGPT 17 U/L (12-78); BILIRUBIN,DIRECT 0.1 MG/DL (0.0-0.2); BILIRUBIN,TOTAL 0.3 MG/DL (0.2-1.0); BLOOD UREA NITROGEN 13 MG/DL (7-18); CALCIUM LEVEL 8.2 MG/DL (8.5-10.1); CARBON DIOXIDE LEVEL 29 MEQ/L (21-32); CHLORIDE LEVEL 106 MEQ/L (98-107); CPK CREATINE PHOSPHOKINASE 29 U/L (26-192); CREATININE FOR GFR 0.64 MG/DL (0.55-1.30); FERRITIN 150 NG/ML (8-252); GLOMERULAR FILTRATION RATE > 60.0 (>51); GLUCOSE, FASTING 107 MG/DL (70-100); LDH LACTATE DEHYDROGENASE 294 U/L (84-246); NT-PRO BNP 187 PG/ML (<125); POTASSIUM SERUM 4.2 MEQ/L (3.5-5.1); SODIUM LEVEL 141 MEQ/L (136-145); TOTAL PROTEIN 6.9 GM/DL (6.4-8.2); TROPONIN I < 0.02 NG/ML (< 0.10)
[2020-08-28 07:58] LABS: EOSINOPHILS 1 % (0-3); LYMPHOCYTES 13 % (16-44); METAMYELOCYTES 2 % (0-0); MONOCYTES 6 % (0-5); NEUTROPHILS 76 % (28-66)
[2020-08-28 08:02] LABS: GIANT PLATELETS 1+; PLATELET ESTIMATE NORMAL (NORMAL)
[2020-08-28] MEDS: dexameTHASONE 4 MG/ML 1ML VIAL (J1100 PER 1MG) IV SCH (08:24)
[2020-08-28] MEDS: PANTOPRAZOLE 40MG TAB (PROTONIX) PO SCH ×2 (08:24→20:55)
[2020-08-28] MEDS: ENOXAPARIN 40MG/0.4ML SYRINGE (J1650 PER 10MG) SC SCH (08:24)
[2020-08-28] MEDS: ASPIRIN 81MG ENTERIC TABLET PO SCH (08:24)
[2020-08-28] MEDS: POTASSIUM CHLORIDE 10 MEQ SR TABLET PO SCH ×2 (08:25→20:55)
[2020-08-28 09:00] VITALS: O2SAT 94
--- NOTE | 2020-08-28 11:24 | IPNPDOC ---
Subjective Date Seen The patient was seen on 08/28/20. Subjective Chief Complaint/HPI No complaints this morning. Oxygen down to 2 Liters. Has number of stairs in thw house to go to the bathroom which is upstairs. Objective Physical Examination General Exam: Positive: Alert, Cooperative, No Acute Distress Eye Exam: Positive: PERRLA, Conjunctiva & lids normal, EOMI; Negative: Sclera icteric ENT Exam: Positive: Atraumatic, Mucous membr. moist/pink, Pharynx Normal Neck Exam: Positive: Supple; Negative: JVD, thyromegaly Chest Exam: Positive: Other (bilateral diffuse crackles) Heart Exam: Positive: Rate Normal, Regular Rhythm, Normal S1, Normal S2; Negative: Murmurs, Rubs Telemetry: Positive: No significant arrhythmia Abdomen Exam: Positive: Normal bowel sounds, Soft; Negative: Tenderness Extremity Exam: Negative: Clubbing, Cyanosis, Edema Assessment /Plan Assessment 50 year old female with PMH of asthma has been sick for the past 7 days with all the symptoms of a viral illness .She was diagnosed with COVID on 08/19/20 and her symptoms began 2 days prior. She has been unable to take any solids but had been able to keep liquids down till today when she woke up with a fever and had nausea and vomiting and could not even keep her liquids down. EMS noted her to be 82% in room air. In the ED on arrival she was 77% in room air with SpO2 improving to 94% wit 3 L oxygen adn febrile. CXR showed diffuse patchy infiltrates. She was admitted for COVID pneumonia and acute respiratory failure with Hypoxia. COVID pneumonia with acute resp failure with hypoxia dexamethasone, remdesevir, asa, lovenox, pantoprazole bid. incentive spirometry, awake proning, lateral decubitus most of the time when in bed. Oxygen supplementation, continuous pulse oximetry. albuterol QID. COVID labs procalcitonin is normal. Hypokalemia replaced Could not tolerate IV potassium Asthma does not seem to be in exacerbation at present continue home meds, albuterol On dexamthasone. Plan/VTE VTE Prophylaxis Ordered?: Yes VS, I&O, 24H, Fishbone Vital Signs/I&O Vital Signs Date Time Temp Pulse Resp B/P (MAP) Pulse Ox O2 Delivery O2 Flow Rate FiO2 08/28/20 09:00 94 Nasal Cannula 2.0 08/28/20 05:05 98.2 52 19 154/96 (115) I&O- Last 24 Hours up to 6 AM 08/28/20 05:59 Intake Total 2690 ml Output Total 1250 ml Balance 1440 ml Laboratory Data 24H LABS Laboratory Tests 2 08/28/20 06:47: Immature Granulocyte % (Auto) , Neutrophils (%) (Auto) , Nucleated Red Blood Cells % (auto) 0.0, Neutrophils 76H, Band Neutrophils 2, Lymphocytes (Manual) 13L, Monocytes (Manual) 6H, Eosinophils (Manual) 1, Metamyelocytes 2H, Giant Platelets 1+, Platelet Estimate NORMAL, Prothrombin Time 14.6H, Prothromb Time International Ratio 1.12, Activated Partial Thromboplast Time 27.3, Fibrinogen 565H, Anion Gap 6L, Glomerular Filtration Rate > 60.0, Calcium Level 8.2L, Ferritin 150, Total Bilirubin 0.3, Direct Bilirubin 0.1, Aspartate Amino Transf (AST/SGOT) 16, Alanine Aminotransferase (ALT/SGPT) 17, Alkaline Phosphatase 66, Lactate Dehydrogenase 294H, Total Creatine Kinase 29, Troponin I < 0.02, QI-Lsk-I-Type Natriuretic Peptide 187H, Total Protein 6.9, Albumin 2.3L, Albumin/Globulin Ratio 0.5L CBC/BMP Laboratory Tests 08/28/20 06:47 RENUKA CHANDRA MD August 28, 2020 11:24
[2020-08-28 14:00] VITALS: BP 114/60
[2020-08-28] MEDS: SODIUM CHLORIDE 0.9% INJ 10 ML SYR IV SCH (18:27)
[2020-08-28] MEDS: REMDESIVIR 100 MG in NS 250 ML IV SCH (18:27)
[2020-08-28 20:56] VITALS: BP 136/71; O2SAT 95
[2020-08-29] VITALS (10 sets, daily range): BP systolic 123–130; BP diastolic 66–69; O2SAT 85–93
[2020-08-29] MEDS: ALBUTEROL 90 MCG/ACT 8GM HFA INHALER INH SCH ×3 (01:10→14:24)
[2020-08-29 06:38] LABS: HEMATOCRIT 38.3 % (36.0-47.0); HEMOGLOBIN 12.7 g/dl (12.0-15.5); MEAN CORPUSCULAR HEMOGLOBIN 28.1 pg (27.0-33.0); MEAN CORPUSCULAR HGB CONC 33.2 g/dl (32.0-36.5); MEAN CORPUSCULAR VOLUME 84.7 fl (80.0-96.0); PLATELET COUNT, AUTOMATED 335 10^3/uL (150-450); RED BLOOD COUNT 4.52 10^6/uL (4.00-5.40)
[2020-08-29 07:01] LABS: BLOOD UREA NITROGEN 14 MG/DL (7-18); CALCIUM LEVEL 8.3 MG/DL (8.5-10.1); CARBON DIOXIDE LEVEL 29 MEQ/L (21-32); CHLORIDE LEVEL 103 MEQ/L (98-107); CREATININE FOR GFR 0.65 MG/DL (0.55-1.30); GLOMERULAR FILTRATION RATE > 60.0 (>51); GLUCOSE, FASTING 107 MG/DL (70-100); POTASSIUM SERUM 4.5 MEQ/L (3.5-5.1); SODIUM LEVEL 138 MEQ/L (136-145)
[2020-08-29 07:07] LABS: ATYPICAL LYMPH 6 % (0-5); EOSINOPHILS 1 % (0-3); LYMPHOCYTES 17 % (16-44); MONOCYTES 3 % (0-5); MYELOCYTES 1 % (0-0); NEUTROPHILS 72 % (28-66)
[2020-08-29 07:12] LABS: PLATELET ESTIMATE NORMAL (NORMAL); SMUDGE CELLS 1+
[2020-08-29] MEDS: ENOXAPARIN 40MG/0.4ML SYRINGE (J1650 PER 10MG) SC SCH (08:39)
[2020-08-29] MEDS: dexameTHASONE 4 MG/ML 1ML VIAL (J1100 PER 1MG) IV SCH (08:40)
[2020-08-29] MEDS: PANTOPRAZOLE 40MG TAB (PROTONIX) PO SCH (08:40)
[2020-08-29] MEDS: ASPIRIN 81MG ENTERIC TABLET PO SCH (08:41)
[2020-08-29] MEDS: POTASSIUM CHLORIDE 10 MEQ SR TABLET PO SCH (08:49)
[2020-08-29] MEDS ORDERED: BENZ-18 PO (16:57)
[2020-08-29] MEDS ORDERED: PRED10TA2 PO (16:57)
[2020-08-29] MEDS ORDERED: PANT40TA29 PO (16:57)
[2020-08-29] MEDS ORDERED: ASPI-551 PO (16:57)
--- NOTE | 2020-08-29 18:49 | DS.PDOC ---
Discharge Summary General Date of Admission August 24, 2020 at 15:09 Date of Discharge 08/29/20 Discharge Summary PROCEDURES PERFORMED DURING STAY: [None]. DISCHARGE DIAGNOSES: Covid pneumonia Acute hypoxic respiratory failure Asthma Obesity Possible sleep apnea COMPLICATIONS/CHIEF COMPLAINT: Acute Hypoxemic Resp Failure Due To Covid-19. HOSPITAL COURSE: 50 year old female with PMH of asthma has been sick for the past 7 days with all the symptoms of a viral illness .She was diagnosed with COVID on 08/19/20 and her symptoms began 2 days prior. She has been unable to take any solids but had been able to keep liquids down till today when she woke up with a fever and had nausea and vomiting and could not even keep her liquids down. EMS noted her to be 82% in room air. In the ED on arrival she was 77% in room air with SpO2 improving to 94% wit 3 L oxygen adn febrile. CXR showed diffuse patchy infiltrates. She was admitted for COVID pneumonia and acute respiratory failure with Hypoxia. COVID pneumonia with acute resp failure with hypoxia dexamethasone, remdesevir, asa, lovenox, pantoprazole bid given Now improved oxygenation and has been off oxygen since this morning and whole of yesterday. She did need oxygen at night . She may have underlying sleep apnea with her body habitus. Continue incentive spirometry, lateral decubitus most of the time when in bed at home Prednisone taper given. Continue albuterol tid Hypokalemia resolved Asthma does not seem to be in exacerbation at present continue albuterol On prednisone. Obesity with possible sleep apnea. may need further work up with PMD DISCHARGE MEDICATIONS: Please see below. ALLERGIES: Please see below. PHYSICAL EXAMINATION ON DISCHARGE: VITAL SIGNS: Please see below. General Exam: Positive: Alert, Cooperative, No Acute Distress Eye Exam: Positive: PERRLA, Conjunctiva & lids normal, EOMI; Negative: Sclera icteric ENT Exam: Positive: Atraumatic, Mucous membr. moist/pink, Pharynx Normal Neck Exam: Positive: Supple; Negative: JVD, thyromegaly Chest Exam: Positive: Other (bilateral diffuse crackles) Heart Exam: Positive: Rate Normal, Regular Rhythm, Normal S1, Normal S2; Negative: Murmurs, Rubs Telemetry: Positive: No significant arrhythmia Abdomen Exam: Positive: Normal bowel sounds, Soft; Negative: Tenderness Extremity Exam: Negative: Clubbing, Cyanosis, Edema LABORATORY DATA: Please see below. ACTIVITY: [As tolerated]. DIET: As tolerated DISCHARGE PLAN: Home DISPOSITION: 01 Home, Self-Care. DISCHARGE INSTRUCTIONS: Follow with PMD in 1 week Check oxygen saturations 3-4 times a day and if below 90% persistently please either call ED or primary care provider DISCHARGE CONDITION: [Stable]. TIME SPENT ON DISCHARGE: 35 minutes. Vital Signs/I&Os Vital Signs Date Time Temp Pulse Resp B/P (MAP) Pulse Ox O2 Delivery O2 Flow Rate FiO2 08/29/20 17:00 93 Room Air 08/29/20 14:00 98.3 70 18 130/69 (89) 08/29/20 08:45 3.0 I&O- Last 24 Hours up to 6 AM 08/29/20 06:00 Intake Total 1110 ml Output Total 2150 ml Balance -1040 ml Laboratory Data Labs 24H Laboratory Tests 2 08/29/20 06:25: Immature Granulocyte % (Auto) , Neutrophils (%) (Auto) , Nucleated Red Blood Cells % (auto) 0.2H, Neutrophils 72H, Lymphocytes (Manual) 17, Monocytes (Manual) 3, Eosinophils (Manual) 1, Myelocytes 1H, Atypical Lymphocytes 6H, Smudge Cells 1+, Platelet Estimate NORMAL, Anion Gap 6L, Glomerular Filtration Rate > 60.0, Calcium Level 8.3L CBC/BMP Laboratory Tests 08/29/20 06:25 Discharge Medications Scheduled Aspirin (Aspirin EC) 81 Mg Tablet.dr, 81 MG PO DAILY Pantoprazole Sodium (Pantoprazole Sodium) 40 Mg Tablet.dr, 40 MG PO DAILY Prednisone (Prednisone) 10 Mg Tablet, 10 MG PO TAPER Take 4 tabs daily x 3 days, then 3 tabs daily x 3 days, then 2 tabs daily x 3 days, then 1 tab daily x 3 days and stop Scheduled PRN Albuterol Sulfate (Ventolin Hfa) 18 Gm Hfa.aer.ad, 2 PUFF INH Q4H PRN for SHORTNESS OF BREATH, (Reported) Benzonatate (Benzonatate) 100 Mg Capsule, 100 MG PO TIDP PRN for COUGH Ondansetron (Ondansetron Odt) 4 Mg Tab.rapdis, 4 MG PO Q6H PRN for NAUSEA OR VOMITING, (Reported) Allergies Coded Allergies: No Known Allergies (Unverified , 07/13/16) RENUKA CHANDRA MD August 29, 2020 18:49
== END 2020-08-29 18:00 | disposition home or self-care (01) | DRG 137 ==
LOC: M ED 12:37 → EDBD 12:37 → M ED INP 15:09 → ENRESERV 16:10 → M 4MAIN 17:00
PROVIDERS: ADMIT Internal Medicine Nephrology; ATTEND Internal Medicine Nephrology
DX: U07.1 COVID-19 (principal); J96.01 Acute respiratory failure with hypoxia; J12.82 Pneumonia due to coronavirus disease 2019; J45.909 Unspecified asthma, uncomplicated; E87.6 Hypokalemia; E66.9 Obesity, unspecified; Z68.37 Body mass index [BMI] 37.0-37.9, adult; Z79.82 Long term (current) use of aspirin; Z79.899 Other long term (current) drug therapy

== ENCOUNTER → 2020-10-01 | Outpatient (CLI) | payer OTHER ==
[~2020-10-01] MED LIST changes: +ASPI-551 PO; +BENZ-18 PO; +PANT40TA29 PO; +PRED10TA2 PO
[2020-10-01 13:44] LABS: HCG, SERUM QUALITATIVE NEGATIVE (NEGATIVE)
[2020-10-01 13:45] LABS: BLOOD UREA NITROGEN 9 MG/DL (7-18); CARBON DIOXIDE LEVEL 27 MEQ/L (21-32); CHLORIDE LEVEL 107 MEQ/L (98-107); CREATININE FOR GFR 0.66 MG/DL (0.55-1.30); GLOMERULAR FILTRATION RATE > 60.0 (>51); GLUCOSE, FASTING 101 MG/DL (70-100); SODIUM LEVEL 138 MEQ/L (136-145)
[2020-10-01 13:46] LABS: MAGNESIUM LEVEL 1.9 MG/DL (1.8-2.4)
== END ==
LOC: M PLALAB 12:00
PROVIDERS: ATTEND Family Medicine
DX: E87.6 Hypokalemia (principal)

== ENCOUNTER 2020-12-05 10:51 | Emergency (ER) | payer OTHER ==
[~2020-12-05] VITALS: Ht 167.6 cm; Wt 107.7 kg
[2020-12-05 11:37] LABS: BASO % 0.6 % (0.0-1.0); EOS # 0.2 10^3/uL (0.0-0.5); EOS % 3.1 % (0.0-3.0); HEMATOCRIT 37.6 % (36.0-47.0); HEMOGLOBIN 12.7 g/dl (12.0-15.5); LYMPH # 2.2 10^3/uL (1.5-5.0); LYMPH % 34.6 % (24.0-44.0); MEAN CORPUSCULAR HEMOGLOBIN 29.2 pg (27.0-33.0); MEAN CORPUSCULAR HGB CONC 33.8 g/dl (32.0-36.5); MEAN CORPUSCULAR VOLUME 86.4 fl (80.0-96.0); MONO # 0.3 10^3/uL (0.0-0.8); NEUTROPHILS # 3.6 10^3/uL (1.5-8.5); NEUTROPHILS % 56.4 % (36.0-66.0); PLATELET COUNT, AUTOMATED 231 10^3/uL (150-450); RED BLOOD COUNT 4.35 10^6/uL (4.00-5.40); WHITE BLOOD COUNT 6.4 10^3/uL (4.0-10.0)
--- NOTE | 2020-12-05 11:48 | REP ---
INDICATION: DYSPNEA/COUGH. COMPARISON: Portable chest, 08/24/2020. TECHNIQUE: Upright AP portable chest image was obtained. FINDINGS: The lungs are clear. The heart borders and mediastinum are normal. The upper abdominal bowel gas pattern is normal. IMPRESSION: No evidence of acute cardiopulmonary pathology. <Electronically signed by Rene Donahue > 12/05/20 [id number]
[2020-12-05 12:13] LABS: ALBUMIN 3.2 GM/DL (3.2-5.2); ALT/SGPT 18 U/L (12-78); BILIRUBIN,DIRECT 0.1 MG/DL (0.0-0.2); BILIRUBIN,TOTAL 0.5 MG/DL (0.2-1.0); BLOOD UREA NITROGEN 10 MG/DL (7-18); CALCIUM LEVEL 8.3 MG/DL (8.5-10.1); CARBON DIOXIDE LEVEL 26 MEQ/L (21-32); CHLORIDE LEVEL 108 MEQ/L (98-107); CREATININE FOR GFR 0.71 MG/DL (0.55-1.30); GLOMERULAR FILTRATION RATE > 60.0 (>51); GLUCOSE, FASTING 108 MG/DL (70-100); NT-PRO BNP 68 PG/ML (<125); POTASSIUM SERUM 4.2 MEQ/L (3.5-5.1); SODIUM LEVEL 139 MEQ/L (136-145); THYROID STIMULATING HORMONE 0.811 uIU/ML (0.358-3.740); TOTAL PROTEIN 6.4 GM/DL (6.4-8.2)
[2020-12-05] MEDS ORDERED: ISOVUE-370 76% 100ML VIAL As Ordered ONE (13:14)
--- NOTE | 2020-12-05 14:17 | REP ---
INDICATION: sob. COMPARISON: None. TECHNIQUE: Imaging protocol: CT angiography of the chest with IV contrast. Contiguous 3 mm thick axial projection images were obtained through the chest. 2D sagittal and coronal reconstructions were performed. Radiation optimization: All CT scans at this facility use at least one of these dose optimization techniques: automated exposure control; mA and/or kV adjustment per patient size (includes targeted exams where dose is matched to clinical indication); or iterative reconstruction. CONTRAST: 75 cc Isovue 370, IV. FINDINGS: Lower neck: Thyroid gland is normal. There is no supraclavicular lymphadenopathy. Mediastinum: No abnormal masses or lymphadenopathy. Heart/thoracic aorta/pulmonary arterial tree: The heart is enlarged. There is no pericardial effusion. Is no evidence of upper and mid lung pulmonary emboli. There is respiratory motion artifact which limits evaluation of the basilar pulmonary arteries. Upper abdomen: The gallbladder is surgically absent. There is mild splenomegaly measuring 13.4 cm in axial dimension. Thoracic esophagus: There is a small hiatal hernia. Chest wall and axilla: The breast soft tissues of the chest wall appear normal. There is no axillary lymphadenopathy. There is moderate multilevel degenerative disc disease of the thoracic spine. Lung parenchyma: There is mild mosaic perfusion of the lungs which is nonspecific but is consistent with obstructive airways disease. There are no pulmonary nodules. There are no pleural effusions. IMPRESSION: 1. No evidence of pulmonary emboli although evaluation of the lower lung zones is limited by respiratory motion artifact. 2. There is mild mosaic perfusion of the lungs consistent with obstructive airways disease. 3. Mild splenomegaly. 4. Small hiatal hernia. 5. Cardiomegaly. 6. Degenerative disc disease of the thoracic spine. <Electronically signed by Rene Donahue > 12/05/20 [id number]
[2020-12-05] MEDS ORDERED: holter monitor (16:07)
[2020-12-05 18:01] VITALS: BP 145/93
--- NOTE | 2020-12-06 16:44 | ECGEPIP ---
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
--- NOTE | 2020-12-06 16:47 | ECGEPIP ---
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
== END 2020-12-05 18:24 | disposition home or self-care (01) ==
LOC: M ED 10:51 → EDBD 10:51 → M ED 18:24
DX: R00.2 Palpitations (principal); I49.1 Atrial premature depolarization; K44.0 Diaphragmatic hernia with obstruction, without gangrene; I51.7 Cardiomegaly; R91.8 Other nonspecific abnormal finding of lung field; M51.34 Other intervertebral disc degeneration, thoracic region; R16.1 Splenomegaly, not elsewhere classified; J45.909 Unspecified asthma, uncomplicated; G47.33 Obstructive sleep apnea (adult) (pediatric); E66.9 Obesity, unspecified
CPT/HCPCS: 36415; 71045; 71275; 80048; 80076; 83880; 84443; 85025; 87798; 93005; 93041; 94760; 99285; Q9967

== ENCOUNTER → 2020-12-10 | Outpatient (CLI) | payer OTHER ==
[~2020-12-10] MED LIST changes: +holter monitor
== END ==
LOC: M EKG 14:06
PROVIDERS: ATTEND Emergency Medicine
DX: R00.2 Palpitations (principal)

== ENCOUNTER 2021-03-16 11:20 | Emergency (ER) | payer OTHER ==
[~2021-03-16] VITALS: Ht 167.6 cm; Wt 110.7 kg
[2021-03-16 11:20] VITALS: BP 135/85
== END 2021-03-16 14:45 | disposition left against medical advice (07) ==
LOC: M ED 11:20
DX: Z53.21 Procedure and treatment not carried out due to patient leaving prior to being seen by health care provider (principal)

== ENCOUNTER 2021-06-13 13:11 | Emergency (ER) | payer OTHER ==
[2021-06-13 14:12] LABS: BASO % 0.5 % (0.0-1.0); EOS # 0.2 10^3/uL (0.0-0.5); EOS % 2.5 % (0.0-3.0); HEMATOCRIT 37.1 % (36.0-47.0); HEMOGLOBIN 12.5 g/dl (12.0-15.5); LYMPH # 2.2 10^3/uL (1.5-5.0); LYMPH % 28.8 % (24.0-44.0); MEAN CORPUSCULAR HGB CONC 33.7 g/dl (32.0-36.5); MEAN CORPUSCULAR VOLUME 86.1 fl (80.0-96.0); MONO # 0.4 10^3/uL (0.0-0.8); MONO % 5.2 % (2.0-8.0); NEUTROPHILS # 4.8 10^3/uL (1.5-8.5); NEUTROPHILS % 62.7 % (36.0-66.0); PLATELET COUNT, AUTOMATED 285 10^3/uL (150-450); RED BLOOD COUNT 4.31 10^6/uL (4.00-5.40); WHITE BLOOD COUNT 7.6 10^3/uL (4.0-10.0)
[2021-06-13 14:17] LABS: BLOOD UREA NITROGEN 12 MG/DL (7-18); CALCIUM LEVEL 8.4 MG/DL (8.5-10.1); CARBON DIOXIDE LEVEL 27 MEQ/L (21-32); CHLORIDE LEVEL 109 MEQ/L (98-107); CREATININE FOR GFR 0.66 MG/DL (0.55-1.30); GLOMERULAR FILTRATION RATE > 60.0 (>51); GLUCOSE, FASTING 97 MG/DL (70-100); POTASSIUM SERUM 4.1 MEQ/L (3.5-5.1); SODIUM LEVEL 140 MEQ/L (136-145)
[2021-06-13] MEDS ORDERED: NS 1,000 ML IV ONE (15:00)
[2021-06-13 17:23] VITALS: BP 140/78
[2021-06-13 19:21] LABS: GC DNA AMPLIFICATION NEGATIVE (NEGATIVE)
== END 2021-06-13 17:24 | disposition home or self-care (01) ==
LOC: M ED 13:11
DX: N93.9 Abnormal uterine and vaginal bleeding, unspecified (principal); Z86.69 Personal history of other diseases of the nervous system and sense organs

== ENCOUNTER 2021-09-23 21:40 | Emergency (ER) | payer OTHER ==
[~2021-09-23] VITALS: Ht 167.6 cm; Wt 110.0 kg
[2021-09-24] MEDS ORDERED: PROPARACAINE 0.5% OPHTH SOL 15ML OU ONE
[2021-09-24] MEDS ORDERED: ISOVUE-370 76% 100ML VIAL As Ordered ONE ×2 (00:31→00:45)
[2021-09-24 02:46] VITALS: BP 108/62
== END 2021-09-24 02:49 | disposition home or self-care (01) ==
LOC: M ED 21:40
DX: H33.002 Unspecified retinal detachment with retinal break, left eye (principal)
CPT/HCPCS: 36415; 70450; 70496; 80047; 99284; Q9967

== ENCOUNTER 2021-11-27 13:08 | Emergency (ER) | payer OTHER ==
[~2021-11-27] VITALS: Ht 167.6 cm; Wt 110.5 kg
[2021-11-27 13:26] VITALS: BP 134/69
[2021-11-27 14:51] VITALS: O2SAT 97
== END 2021-11-27 15:31 | disposition home or self-care (01) ==
LOC: EDBD 13:08 → M ED 13:08
DX: U07.1 COVID-19 (principal); R50.9 Fever, unspecified; J02.9 Acute pharyngitis, unspecified; R05.9 Cough, unspecified; R51.9 Headache, unspecified; R56.9 Unspecified convulsions; F17.200 Nicotine dependence, unspecified, uncomplicated

== ENCOUNTER → 2021-12-01 | Outpatient (REF) | payer OTHER | LOC: M SFHCPLAZ 13:00 | PROVIDERS: ATTEND Physician Assistant | DX: U07.1 COVID-19 (principal) ==

== ENCOUNTER 2022-03-17 17:47 | Emergency (ER) | payer OTHER ==
[~2022-03-17] VITALS: Ht 167.6 cm; Wt 107.0 kg
[2022-03-18] MEDS ORDERED: IBUPROFEN 800 MG TAB PO ONE (06:50)
[2022-03-18 08:50] VITALS: BP 147/65
== END 2022-03-18 08:52 | disposition home or self-care (01) ==
LOC: M ED 17:47
DX: M79.671 Pain in right foot (principal); M25.561 Pain in right knee; M25.531 Pain in right wrist; M25.532 Pain in left wrist; W00.0XXA Fall on same level due to ice and snow, initial encounter; Y92.009 Unspecified place in unspecified non-institutional (private) residence as the place of occurrence of the external cause

== ENCOUNTER → 2022-05-26 | Outpatient (CLI) | payer OTHER ==
[2022-05-26 14:20] LABS: BASO # 0.1 10^3/uL (0.0-0.2); BASO % 0.6 % (0.0-1.0); EOS # 0.3 10^3/uL (0.0-0.5); EOS % 3.8 % (0.0-3.0); HEMATOCRIT 39.5 % (36.0-47.0); HEMOGLOBIN 12.8 g/dl (12.0-15.5); LYMPH # 2.5 10^3/uL (1.5-5.0); LYMPH % 30.8 % (24.0-44.0); MEAN CORPUSCULAR HGB CONC 32.4 g/dl (32.0-36.5); MEAN CORPUSCULAR VOLUME 89.4 fl (80.0-96.0); MONO # 0.6 10^3/uL (0.0-0.8); MONO % 7.1 % (2.0-8.0); NEUTROPHILS # 4.7 10^3/uL (1.5-8.5); NEUTROPHILS % 57.3 % (36.0-66.0); PLATELET COUNT, AUTOMATED 261 10^3/uL (150-450); RED BLOOD COUNT 4.42 10^6/uL (4.00-5.40); WHITE BLOOD COUNT 8.3 10^3/uL (4.0-10.0)
[2022-05-26 14:47] LABS: LIPASE 29 U/L (12-53)
[2022-05-26 14:49] LABS: ALBUMIN 3.4 G/DL (3.2-5.2); ALKALINE PHOSPHATASE 74 U/L (46-116); ALT/SGPT 12 U/L (7.0-40); AMYLASE 67 U/L (30-118); AST/SGOT 18 U/L (<34); BILIRUBIN,TOTAL 0.5 MG/DL (0.3-1.2); BLOOD UREA NITROGEN 17 MG/DL (9-23); CALCIUM LEVEL 8.4 MG/DL (8.5-10.1); CARBON DIOXIDE LEVEL 30 MMOL/L (20-31); CHLORIDE LEVEL 107 MMOL/L (98-107); CHOLESTEROL LEVEL 134 MG/DL (<200); CHOLESTEROL RISK RATIO 3.37 (<5); CREATININE FOR GFR 0.65 MG/DL (0.55-1.30); GLOMERULAR FILTRATION RATE > 60.0 (>51); GLUCOSE, FASTING 102 MG/DL (60-100); HDL CHOLESTEROL 39.7 MG/DL (>40); IRON (FE) 60 UG/DL (50-170); LDL CHOLESTEROL 70.9 MG/DL (<100); NON-HDL-C 94 MG/DL; SODIUM LEVEL 140 MMOL/L (136-145); TOTAL PROTEIN 6.6 G/DL (5.7-8.2); TRIGLYCERIDES LEVEL 117 MG/DL (<150)
[2022-05-26 14:53] LABS: THYROID STIMULATING HORMONE 1.878 uIU/ML (0.55-4.78)
[2022-05-26 15:34] LABS: HEMOGLOBIN A1c 5.7 % (4.0-6.0)
== END ==
LOC: M PLALAB 09:29
PROVIDERS: ATTEND Physician Assistant
DX: Z13.220 Encounter for screening for lipoid disorders (principal); R10.84 Generalized abdominal pain; E61.1 Iron deficiency; Z12.11 Encounter for screening for malignant neoplasm of colon

== ENCOUNTER → 2022-06-14 | Outpatient (CLI) | payer OTHER | LOC: M RAD 07:03 | PROVIDERS: ATTEND Physician Assistant | DX: R22.42 Localized swelling, mass and lump, left lower limb (principal) ==

== ENCOUNTER → 2022-06-14 | Outpatient (CLI) | payer OTHER | LOC: M RAD 07:02 | PROVIDERS: ATTEND Physician Assistant | DX: R10.817 Generalized abdominal tenderness (principal) ==

== ENCOUNTER 2022-07-12 05:26 | Emergency (ER) | payer OTHER ==
[~2022-07-12] VITALS: Ht 167.6 cm; Wt 117.5 kg
[~2022-07-12 05:26] MED LIST changes: -HOLTER MONITOR XX
[2022-07-12 06:01] LABS: BASO # 0.1 10^3/uL (0.0-0.2); BASO % 0.6 % (0.0-1.0); EOS # 0.3 10^3/uL (0.0-0.5); EOS % 2.5 % (0.0-3.0); HEMOGLOBIN 13.6 g/dl (12.0-15.5); LYMPH # 3.1 10^3/uL (1.5-5.0); MEAN CORPUSCULAR HEMOGLOBIN 28.6 pg (27.0-33.0); MEAN CORPUSCULAR HGB CONC 33.2 g/dl (32.0-36.5); MEAN CORPUSCULAR VOLUME 86.3 fl (80.0-96.0); MONO # 0.7 10^3/uL (0.0-0.8); MONO % 7.2 % (2.0-8.0); NEUTROPHILS % 59.3 % (36.0-66.0); PLATELET COUNT, AUTOMATED 235 10^3/uL (150-450); RED BLOOD COUNT 4.75 10^6/uL (4.00-5.40); WHITE BLOOD COUNT 10.2 10^3/uL (4.0-10.0)
[2022-07-12 06:20] LABS: PROTHROMBIN TIME 13.4 SECONDS (12.5-14.5)
[2022-07-12 06:34] LABS: ALBUMIN 3.6 G/DL (3.2-5.2); ALKALINE PHOSPHATASE 86 U/L (46-116); ALT/SGPT 14 U/L (7.0-40); AST/SGOT 18 U/L (<34); BILIRUBIN,DIRECT 0.1 MG/DL (<0.4); BILIRUBIN,TOTAL 0.4 MG/DL (0.3-1.2); BLOOD UREA NITROGEN 17 MG/DL (9-23); CALCIUM LEVEL 8.5 MG/DL (8.5-10.1); CARBON DIOXIDE LEVEL 29 MMOL/L (20-31); CHLORIDE LEVEL 104 MMOL/L (98-107); CK-MB VALUE MASS 1.1 NG/ML (<3.6); CREATININE FOR GFR 0.84 MG/DL (0.55-1.30); GLOMERULAR FILTRATION RATE > 60.0 (>51); GLUCOSE, FASTING 124 MG/DL (60-100); POTASSIUM SERUM 3.9 MMOL/L (3.5-5.1); SODIUM LEVEL 141 MMOL/L (136-145); TOTAL PROTEIN 7.1 G/DL (5.7-8.2)
[2022-07-12 06:35] LABS: FREE T4 1.05 NG/DL (0.89-1.76)
[2022-07-12] MEDS ORDERED: SUCRALFATE 1 GM TAB PO ONE (06:35)
[2022-07-12] MEDS ORDERED: NS 1,000 ML IV ONE (06:35)
[2022-07-12] MEDS ORDERED: GI COCKTAIL 50ML BTL(HYOSCYAMINE/MAALOX/LIDOCAINE VISCOUS)(1:3:1) PO ONE (06:35)
[2022-07-12 06:36] LABS: THYROID STIMULATING HORMONE 3.401 uIU/ML (0.55-4.78)
[2022-07-12 06:40] LABS: CPK CREATINE PHOSPHOKINASE 117 U/L (34-145); MB/CK RELATIVE INDEX 0.94 (< OR =4)
[2022-07-12] MEDS ORDERED: ISOVUE-370 76% 100ML VIAL As Ordered ONE (06:40)
[2022-07-12 08:45] LABS: CK-MB VALUE MASS < 1.0 NG/ML (<3.6)
[2022-07-12 08:47] LABS: CPK CREATINE PHOSPHOKINASE 97 U/L (34-145); MB/CK RELATIVE INDEX 1.03 (< OR =4)
[2022-07-12] MEDS ORDERED: HOLTER MONITOR XX (09:12)
[2022-07-12 09:15] VITALS: BP 129/75
== END 2022-07-12 09:27 | disposition home or self-care (01) ==
LOC: M ED 05:26 → EDBD 05:26 → M ED 09:27
DX: R00.2 Palpitations (principal); I71.9 Aortic aneurysm of unspecified site, without rupture; M13.80 Other specified arthritis, unspecified site
CPT/HCPCS: 70450; 71046; 71275; 80048; 80076; 82550; 82553; 84439; 84443; 85025; 85610; 85730; 93005; 93041; 94760; 99285; Q9967

== ENCOUNTER → 2022-07-12 | Outpatient (CLI) | payer OTHER ==
[~2022-07-12] MED LIST changes: +HOLTER MONITOR XX
== END ==
LOC: M WHC 11:06
PROVIDERS: ATTEND Physician Assistant
DX: Z12.31 Encounter for screening mammogram for malignant neoplasm of breast (principal)

== ENCOUNTER → 2022-07-15 | Outpatient (CLI) | payer OTHER ==
[~2022-07-15] MED LIST changes: +HOLTER MONITOR XX
== END ==
LOC: M EKG 09:09
PROVIDERS: ATTEND Physician Assistant
DX: R00.2 Palpitations (principal)

== ENCOUNTER 2022-08-02 19:22 | Emergency (ER) | payer OTHER ==
[~2022-08-02] VITALS: Ht 167.6 cm; Wt 106.8 kg
[2022-08-02 20:12] LABS: BASO % 0.4 % (0.0-1.0); EOS # 0.2 10^3/uL (0.0-0.5); EOS % 2.7 % (0.0-3.0); HEMATOCRIT 38.4 % (36.0-47.0); HEMOGLOBIN 12.9 g/dl (12.0-15.5); LYMPH % 29.3 % (24.0-44.0); MEAN CORPUSCULAR HEMOGLOBIN 28.9 pg (27.0-33.0); MEAN CORPUSCULAR HGB CONC 33.6 g/dl (32.0-36.5); MEAN CORPUSCULAR VOLUME 85.9 fl (80.0-96.0); MONO # 0.3 10^3/uL (0.0-0.8); MONO % 4.8 % (2.0-8.0); NEUTROPHILS # 4.2 10^3/uL (1.5-8.5); NEUTROPHILS % 62.5 % (36.0-66.0); PLATELET COUNT, AUTOMATED 235 10^3/uL (150-450); RED BLOOD COUNT 4.47 10^6/uL (4.00-5.40); WHITE BLOOD COUNT 6.7 10^3/uL (4.0-10.0)
[2022-08-02 20:32] LABS: INR 0.99; PROTHROMBIN TIME 13.3 SECONDS (12.5-14.5)
[2022-08-02 20:40] LABS: BLOOD UREA NITROGEN 11 MG/DL (9-23); CALCIUM LEVEL 8.3 MG/DL (8.5-10.1); CARBON DIOXIDE LEVEL 28 MMOL/L (20-31); CHLORIDE LEVEL 108 MMOL/L (98-107); CK-MB VALUE MASS < 1.0 NG/ML (<3.6); CPK CREATINE PHOSPHOKINASE 83 U/L (34-145); CREATININE FOR GFR 0.76 MG/DL (0.55-1.30); GLOMERULAR FILTRATION RATE > 60.0 (>51); GLUCOSE, FASTING 134 MG/DL (60-100); MAGNESIUM LEVEL 1.8 MG/DL (1.8-2.4); POTASSIUM SERUM 3.5 MMOL/L (3.5-5.1); SODIUM LEVEL 141 MMOL/L (136-145)
[2022-08-02 22:17] VITALS: BP 140/73
== END 2022-08-02 22:31 | disposition home or self-care (01) ==
LOC: EDBD 19:22 → M ED 19:22
DX: R00.2 Palpitations (principal); G40.909 Epilepsy, unspecified, not intractable, without status epilepticus

== ENCOUNTER → 2022-08-03 | Outpatient (CLI) | payer OTHER ==
[2022-08-03 14:37] LABS: PERCENT SATURATION 13.3 % (13.2-45.0)
== END ==
LOC: M PLALAB 11:19
PROVIDERS: ATTEND Physician Assistant
DX: E61.1 Iron deficiency (principal)

== ENCOUNTER 2022-10-29 14:38 | Emergency (ER) | payer OTHER ==
[~2022-10-29] VITALS: Ht 167.6 cm; Wt 106.8 kg
[2022-10-29 18:37] VITALS: BP 150/80; TEMP 98.4; O2SAT 100
== END 2022-10-29 18:38 | disposition home or self-care (01) ==
LOC: M ED 14:38 → EDBD 14:38 → M ED 18:38
DX: S93.402A Sprain of unspecified ligament of left ankle, initial encounter (principal); W01.0XXA Fall on same level from slipping, tripping and stumbling without subsequent striking against object, initial encounter; G40.909 Epilepsy, unspecified, not intractable, without status epilepticus; Y99.0 Civilian activity done for income or pay

== ENCOUNTER 2022-11-06 11:41 | Emergency (ER) | payer OTHER ==
[~2022-11-06] VITALS: Ht 167.6 cm; Wt 106.5 kg
[2022-11-06 11:41] VITALS: BP 138/86; TEMP 98.1; O2SAT 94
== END 2022-11-07 03:53 | disposition left against medical advice (07) ==
LOC: M ED 11:41
DX: Z53.21 Procedure and treatment not carried out due to patient leaving prior to being seen by health care provider (principal)

== ENCOUNTER → 2022-11-29 | Outpatient (CLI) | payer OTHER ==
[2022-11-29 13:52] LABS: BASO % 0.5 % (0.0-1.0); EOS # 0.2 10^3/uL (0.0-0.5); EOS % 3.1 % (0.0-3.0); HEMATOCRIT 42.1 % (36.0-47.0); HEMOGLOBIN 14.2 g/dl (12.0-15.5); LYMPH # 2.5 10^3/uL (1.5-5.0); LYMPH % 32.3 % (24.0-44.0); MEAN CORPUSCULAR HGB CONC 33.7 g/dl (32.0-36.5); MEAN CORPUSCULAR VOLUME 85.9 fl (80.0-96.0); MONO # 0.5 10^3/uL (0.0-0.8); MONO % 5.9 % (2.0-8.0); NEUTROPHILS # 4.6 10^3/uL (1.5-8.5); NEUTROPHILS % 57.9 % (36.0-66.0); PLATELET COUNT, AUTOMATED 256 10^3/uL (150-450); WHITE BLOOD COUNT 7.8 10^3/uL (4.0-10.0)
[2022-11-29 14:03] LABS: THYROID STIMULATING HORMONE 1.371 uIU/ML (0.55-4.78)
[2022-11-29 14:04] LABS: FREE T4 1.12 NG/DL (0.89-1.76)
[2022-11-29 14:06] LABS: IRON (FE) 41 UG/DL (50-170); PERCENT SATURATION 10.5 % (13.2-45.0); TOTAL IRON BINDING CAPACITY 389 UG/DL (250-425)
[2022-11-29 14:07] LABS: ALBUMIN 3.6 G/DL (3.2-5.2); ALKALINE PHOSPHATASE 97 U/L (46-116); ALT/SGPT 11 U/L (7.0-40); AST/SGOT 13 U/L (<34); BILIRUBIN,TOTAL 0.5 MG/DL (0.3-1.2); BLOOD UREA NITROGEN 22 MG/DL (9-23); CALCIUM LEVEL 8.7 MG/DL (8.5-10.1); CARBON DIOXIDE LEVEL 28 MMOL/L (20-31); CHLORIDE LEVEL 105 MMOL/L (98-107); CREATININE FOR GFR 0.78 MG/DL (0.55-1.30); FERRITIN 58.7 NG/ML (7.3-270.7); GLOMERULAR FILTRATION RATE > 60.0 (>51); GLUCOSE, FASTING 120 MG/DL (60-100); MAGNESIUM LEVEL 1.8 MG/DL (1.8-2.4); POTASSIUM SERUM 4.7 MMOL/L (3.5-5.1); SODIUM LEVEL 140 MMOL/L (136-145); TOTAL PROTEIN 7.2 G/DL (5.7-8.2); VITAMIN B12 LEVEL 333 PG/ML (211-911)
== END ==
LOC: M PLALAB 10:48
PROVIDERS: ATTEND Physician Assistant
DX: G47.62 Sleep related leg cramps (principal); D50.9 Iron deficiency anemia, unspecified; E55.9 Vitamin D deficiency, unspecified; R00.2 Palpitations; Z12.11 Encounter for screening for malignant neoplasm of colon

== ENCOUNTER → 2023-05-02 | Outpatient (CLI) | payer OTHER ==
[~2023-05-02] MED LIST changes: +HYDR-643; +MACR100C43 PO
[2023-05-02 15:57] LABS: BASO % 0.6 % (0.0-1.0); EOS # 0.2 10^3/uL (0.0-0.5); EOS % 3.1 % (0.0-3.0); HEMOGLOBIN 12.7 g/dl (12.0-15.5); LYMPH # 2.5 10^3/uL (1.5-5.0); LYMPH % 35.5 % (24.0-44.0); MEAN CORPUSCULAR HEMOGLOBIN 28.5 pg (27.0-33.0); MEAN CORPUSCULAR HGB CONC 32.6 g/dl (32.0-36.5); MEAN CORPUSCULAR VOLUME 87.6 fl (80.0-96.0); MONO # 0.4 10^3/uL (0.0-0.8); MONO % 5.6 % (2.0-8.0); NEUTROPHILS # 3.9 10^3/uL (1.5-8.5); NEUTROPHILS % 54.9 % (36.0-66.0); PLATELET COUNT, AUTOMATED 248 10^3/uL (150-450); RED BLOOD COUNT 4.45 10^6/uL (4.00-5.40); WHITE BLOOD COUNT 7.1 10^3/uL (4.0-10.0)
[2023-05-02 16:21] LABS: IRON (FE) 50 UG/DL (50-170); PERCENT SATURATION 13.3 % (13.2-45.0); TOTAL IRON BINDING CAPACITY 377 UG/DL (250-425)
[2023-05-02 16:22] LABS: ALBUMIN 3.6 G/DL (3.2-5.2); ALKALINE PHOSPHATASE 82 U/L (46-116); ALT/SGPT 17 U/L (7.0-40); AST/SGOT 15 U/L (<34); BILIRUBIN,TOTAL 0.5 MG/DL (0.3-1.2); BLOOD UREA NITROGEN 15 MG/DL (9-23); CALCIUM LEVEL 8.6 MG/DL (8.5-10.1); CARBON DIOXIDE LEVEL 29 MMOL/L (20-31); CHLORIDE LEVEL 107 MMOL/L (98-107); CREATININE FOR GFR 0.75 MG/DL (0.55-1.30); GLOMERULAR FILTRATION RATE > 60.0 (>51); GLUCOSE, FASTING 91 MG/DL (60-100); POTASSIUM SERUM 4.1 MMOL/L (3.5-5.1); SODIUM LEVEL 141 MMOL/L (136-145)
[2023-05-02 16:24] LABS: FERRITIN 30.6 NG/ML (7.3-270.7)
== END ==
LOC: M PLALAB 12:36
PROVIDERS: ATTEND Physician Assistant
DX: D50.9 Iron deficiency anemia, unspecified (principal)

== ENCOUNTER → 2023-05-10 | Outpatient (CLI) | payer OTHER | LOC: M RAD 13:13 | PROVIDERS: ATTEND Physician Assistant | DX: R22.31 Localized swelling, mass and lump, right upper limb (principal) ==

== ENCOUNTER → 2023-06-13 | Outpatient (CLI) | payer OTHER | LOC: M PLAIMG 10:47 | PROVIDERS: ATTEND Nurse Practitioner Family | DX: M17.12 Unilateral primary osteoarthritis, left knee (principal); R25.2 Cramp and spasm ==

== ENCOUNTER 2023-09-19 15:07 | Emergency (ER) | payer OTHER ==
[~2023-09-19] VITALS: Ht 167.6 cm; Wt 111.6 kg
[~2023-09-19 15:07] MED LIST changes: +ONDA-282 PO; -ONDA4TAB6 PO
[2023-09-19 23:47] VITALS: BP 131/77; TEMP 97.5; O2SAT 98
== END 2023-09-19 23:49 | disposition home or self-care (01) ==
LOC: M ED 15:07
DX: M25.562 Pain in left knee (principal); I10 Essential (primary) hypertension; Z79.899 Other long term (current) drug therapy

== ENCOUNTER → 2023-12-07 | Outpatient (REF) | payer OTHER | LOC: M LAB REF 16:13 | PROVIDERS: ATTEND Physician Assistant | DX: J02.9 Acute pharyngitis, unspecified (principal); R51.9 Headache, unspecified ==

== ENCOUNTER → 2023-12-14 | Outpatient (REF) | payer OTHER ==
[2023-12-14 18:53] LABS: ALBUMIN 3.4 G/DL (3.2-5.2); ALKALINE PHOSPHATASE 83 U/L (46-116); ALT/SGPT 16 U/L (7.0-40); AST/SGOT 16 U/L (<34); BILIRUBIN,TOTAL 0.5 MG/DL (0.3-1.2); BLOOD UREA NITROGEN 17 MG/DL (9-23); CALCIUM LEVEL 8.7 MG/DL (8.5-10.1); CARBON DIOXIDE LEVEL 27 MMOL/L (20-31); CHLORIDE LEVEL 107 MMOL/L (98-107); CHOLESTEROL LEVEL 152 MG/DL (<200); CHOLESTEROL RISK RATIO 4.76 (<5); CREATININE FOR GFR 0.66 MG/DL (0.55-1.30); GLOMERULAR FILTRATION RATE > 60.0 (>51); GLUCOSE, FASTING 119 MG/DL (60-100); HDL CHOLESTEROL 31.9 MG/DL (>40); LDL CHOLESTEROL 87.3 MG/DL (<100); NON-HDL-C 120.1 MG/DL; POTASSIUM SERUM 4.2 MMOL/L (3.5-5.1); SODIUM LEVEL 140 MMOL/L (136-145); TOTAL PROTEIN 6.9 G/DL (5.7-8.2); TRIGLYCERIDES LEVEL 164 MG/DL (<150)
[2023-12-14 18:54] LABS: THYROID STIMULATING HORMONE 0.689 uIU/ML (0.55-4.78)
== END ==
LOC: M LAB REF 16:45
PROVIDERS: ATTEND Physician Assistant
DX: Z13.1 Encounter for screening for diabetes mellitus (principal); E66.9 Obesity, unspecified; Z13.220 Encounter for screening for lipoid disorders; Z68.39 Body mass index [BMI] 39.0-39.9, adult

== ENCOUNTER → 2023-12-18 | Outpatient (REF) | payer OTHER ==
[2023-12-18 18:55] LABS: BASO # 0.1 10^3/uL (0.0-0.2); BASO % 0.6 % (0.0-1.0); EOS # 0.2 10^3/uL (0.0-0.5); EOS % 2.4 % (0.0-3.0); HEMATOCRIT 41.7 % (36.0-47.0); HEMOGLOBIN 13.9 g/dl (12.0-15.5); LYMPH # 2.7 10^3/uL (1.5-5.0); LYMPH % 34.3 % (24.0-44.0); MEAN CORPUSCULAR HEMOGLOBIN 28.8 pg (27.0-33.0); MEAN CORPUSCULAR HGB CONC 33.3 g/dl (32.0-36.5); MEAN CORPUSCULAR VOLUME 86.5 fl (80.0-96.0); MONO # 0.4 10^3/uL (0.0-0.8); MONO % 5.6 % (2.0-8.0); NEUTROPHILS # 4.5 10^3/uL (1.5-8.5); NEUTROPHILS % 56.6 % (36.0-66.0); PLATELET COUNT, AUTOMATED 278 10^3/uL (150-450); RED BLOOD COUNT 4.82 10^6/uL (4.00-5.40); WHITE BLOOD COUNT 7.9 10^3/uL (4.0-10.0)
[2023-12-18 19:06] LABS: HEMOGLOBIN A1c 5.7 % (4.0-6.0)
[2023-12-18 19:14] LABS: BLOOD UREA NITROGEN 19 MG/DL (9-23); CALCIUM LEVEL 8.9 MG/DL (8.5-10.1); CARBON DIOXIDE LEVEL 25 MMOL/L (20-31); CHLORIDE LEVEL 108 MMOL/L (98-107); CREATININE FOR GFR 0.65 MG/DL (0.55-1.30); GLOMERULAR FILTRATION RATE > 60.0 (>51); GLUCOSE, FASTING 111 MG/DL (60-100); POTASSIUM SERUM 4.6 MMOL/L (3.5-5.1); SODIUM LEVEL 139 MMOL/L (136-145)
== END ==
LOC: M LAB REF 16:41
PROVIDERS: ATTEND Physician Assistant
DX: R73.01 Impaired fasting glucose (principal)

== ENCOUNTER 2024-12-04 07:01 | Day surgery (SDC) | payer OTHER ==
[~2024-12-04] VITALS: Ht 167.6 cm; Wt 113.5 kg
[~2024-12-04 07:01] MED LIST changes: +ALBU8.5H; -HYDR-643; +HYDR-643 PO
[2024-12-04] MEDS: CelecoXIB 400 MG CAP PO ONE (07:45)
[2024-12-04] MEDS ORDERED: dexAMETHasone 4 MG/ML 1 ML VIAL As Ordered ONE (07:46)
[2024-12-04] MEDS ORDERED: KETOROLAC 30 MG/ML 1 ML VIAL As Ordered ONE (07:46)
[2024-12-04] MEDS ORDERED: LIDOCAINE 2% 100 MG/5 ML SDV (FOR ANES.) As Ordered ONE (07:46)
[2024-12-04] MEDS ORDERED: ONDANSETRON 4MG 2ML VIAL As Ordered ONE (07:46)
[2024-12-04] MEDS ORDERED: MIDAZOLAM INJ 2 MG/2 ML VIAL As Ordered ONE (07:55)
[2024-12-04] MEDS: LR 1,000 ML IV SCH (08:02)
[2024-12-04] MEDS: ceFAZolin SOD 2 GM IV ONCE IV ONE (08:55)
[2024-12-04] MEDS ORDERED: ACETAMINOPHEN 1000MG/100ML IV BAG As Ordered ONE (09:00)
[2024-12-04] MEDS: LIDOCAINE 1% SDV 30 ML VIAL As Ordered ONE (09:20)
[2024-12-04] MEDS ORDERED: ONDANSETRON 4MG 2ML VIAL IV PRN (09:30)
[2024-12-04 11:50] VITALS: BP 130/85; TEMP 98; O2SAT 98
== END 2024-12-04 12:00 | disposition home or self-care (01) ==
LOC: M SDC 07:01
PROVIDERS: ATTEND Surgery
DX: D17.21 Benign lipomatous neoplasm of skin and subcutaneous tissue of right arm (principal); I71.40 Abdominal aortic aneurysm, without rupture, unspecified; R73.03 Prediabetes; Z79.899 Other long term (current) drug therapy; Z91.040 Latex allergy status; Z91.048 Other nonmedicinal substance allergy status
CPT/HCPCS: 24071; 88304; J0131; J0665; J0690; J1100; J1885; J2250; J2405; J3010

== ENCOUNTER → 2024-12-10 | Outpatient (REF) | payer OTHER ==
[2024-12-10 19:41] LABS: CHOLESTEROL LEVEL 166.0 MG/DL (<200); CHOLESTEROL RISK RATIO 3.78 (<5); LDL CHOLESTEROL 94.8 MG/DL (<100); NON-HDL-C 122.2 MG/DL; TRIGLYCERIDES LEVEL 137.0 MG/DL (<150)
== END ==
LOC: M LAB REF 17:58
PROVIDERS: ATTEND Student in an Organized Health Care Education/Training Program
DX: R73.01 Impaired fasting glucose (principal); R73.03 Prediabetes